=== PATIENT | male | born 1995 | race Two or more races ===

== ENCOUNTER 2017-12-03 12:08 | Inpatient (IN) | payer OTHER ==
[2017-12-03 14:05] VITALS: BMI 28.1
--- NOTE | 2017-12-03 14:48 | HP ---
COWS - Scale Resting Pulse: 0= [place] 80 or Below Sweatin=Flushed/Facial Moisture Restless Observation: 3= Extraneous Movement Pupil Size: 2= Moderately Dilated Bone or Joint Aches: 2= Severe Diffuse Aches Runny Nose/ Eye Tearin= Runny Nose/Eyes GI Upset > 30mins: 3= Vomiting/Diarrhea Tremor Observation: 2= Slight Tremor Visible Yawning Observation: 2= >3x During Session Anxiety or Irritability: 2=Irritable/Anxious Goose Flesh Skin: 0=Smooth Skin COWS Score: 20 Admission ROS S - HPI Chief Complaint: I NEED HELP TO STOP USING OXYCODONE,PERCOCET Allergies/Adverse Reactions: Allergies Allergy/AdvReac Type Severity Reaction Status Date / Time No Known Allergies Allergy Verified 12/03/17 14:45 History of Present Illness: THIS 22 YEARS OLD SEEKING DETOX FROM PERCOCET,OXYCODONE,WITHDRAWAL SYMPTOM,NEVER BEEN IN DETOX BEFORE NICOTINE DEPENDENCE ANXIETY,DEPRESSION,INSOMNIA NO SIGNIFICANT PERIOD OF SOBRIETY Exam Limitations: No Limitations - Ebola screening Have you traveled outside of the country in the last 21 days: No (N) Have you had contact with anyone from an Ebola affected area: No Have you been sick,other than usual withdrawal symptoms: No Do you have a fever: No - Review of Systems Constitutional: Chills, Diaphoresis, Loss of Appetite, Malaise, Night Sweats, Changes in sleep, Weakness EENT: reports: Tearing, Nose Congestion Respiratory: reports: No Symptoms reported Cardiac: reports: No Symptoms Reported GI: reports: Diarrhea, Nausea, Vomiting, Abdominal cramping, Other (S/P ABDOMINAL SURGEY AT AGE OF 32 YEARS OLD) : reports: No Symptoms Reported Musculoskeletal: reports: Back Pain, Joint Pain, Muscle Pain, Joint Stiffness Integumentary: reports: Dryness Neuro: reports: Headache, Tremors Endocrine: reports: No Symptoms Reported Hematology: reports: No Symptoms Reported Psychiatric: reports: Anxious (INSPMNIA), Depressed Patient History - Patient Medical History Hx Anemia: No Hx Asthma: No Hx Chronic Obstructive Pulmonary Disease (COPD): No Hx Cancer: No Hx Cardiac Disorders: No Hx Congestive Heart Failure: No Hx Hypertension: No Hx Hypercholesterolemia: No Hx Pacemaker: No HX Cerebrovascular Accident: No Hx Seizures: Yes (AT AGE OF 32 YEARS OLD,NO MEDICATION) Hx Dementia: No Hx Diabetes: No Hx Gastrointestinal Disorders: No Hx Liver Disease: No Hx Genitourinary Disorders: No Hx Sexually Transmitted Disorders: No Hx Renal Disease (ESRD): No Hx Thyroid Disease: No Hx Human Immunodeficiency Virus (HIV): No (2017 LAST NEGATIVE) Hx Hepatitis C: No Hx Depression: Yes (ANXIETY,INSOMNIA) Hx Suicide Attempt: No Hx Bipolar Disorder: No Hx Schizophrenia: No Other Medical History: NO SUICIDAL,NO HOMICIDAL - Patient Surgical History Past Surgical History: Yes Hx Abdominal Surgery: Yes (SURGERY AT AGE OF 32 YEARS OLD) - PPD History Documented Results: Negative w/o proof Implanted On Prior [facility] Admission?: No PPD to be Administered?: Yes - Smoking Cessation Smoking history: Current every day smoker Have you smoked in the past 12 months: Yes Aproximately how many cigarettes per day: 7 Cigars Per Day: 0 Hx Chewing Tobacco Use: No Initiated information on smoking cessation: Yes 'Breaking Loose' booklet given: 12/03/17 - Substance & Tx. History Hx Alcohol Use: No Hx Substance Use: Yes Substance Use Type: Marijuana, Opiates Hx Substance Use Treatment: No - Substances Abused PERCOCET Route: Oral Frequency: Daily Amount used: 100MG TO 140 MGS Age of first use: 22 Date of Last Use: 12/03/17 OXYCODONE Route: Oral Frequency: Daily Amount used: 100 MGS Age of first use: 22 Date of Last Use: 12/03/17 Marijuana/Hashish Route: Smoking Frequency: Daily Amount used: 20$ Age of first use: 18 Date of Last Use: 12/02/17 Family Disease History - Family Disease History Family History: Denies Admission Physical Exam [facility] - Vital Signs Vital Signs: Vital Signs - 24 hr 12/03/17 13:59 Temperature 98.1 F Pulse Rate 78 Respiratory 20 Rate Blood Pressure 129/72 - Physical General Appearance: Yes: Moderate Distress, Tremorous, Irritable, Sweating, Anxious HEENTM: Yes: TWILA, Nasal Congestion Respiratory: Yes: Lungs Clear, Normal Breath Sounds, No Respiratory Distress Neck: Yes: Within Normal Limits, Supple, Trachea in good position Breast: Yes: Within Normal Limits Cardiology: Yes: Within Normal Limits, Regular Rhythm, Regular Rate, S1, S2 Abdominal: Yes: Within Normal Limits, Normal Bowel Sounds, Flat, Soft, Surgical Scar Genitourinary: Yes: Within Normal Limits Back: Yes: Muscle Spasm Musculoskeletal: Yes: full range of Motion, Back pain, Joint Stiffness, Muscle Pain Extremities: Yes: Within Normal Limits, Normal Range of Motion, Tremors Neurological: Yes: tea room manager II-XII NML intact, Fully Oriented, Alert, Motor Strength 5/5 Integumentary: Yes: Dry Lymphatic: Yes: Within Normal Limits - Diagnostic (1) Opioid dependence with withdrawal Current Visit: Yes Status: Acute (2) Cannabis dependence Current Visit: Yes Status: Acute (3) Nicotine dependence Current Visit: Yes Status: Acute (4) Anxiety and depression Current Visit: Yes Status: Acute (5) Insomnia Current Visit: Yes Status: Acute Cleared for Admission [facility] - Detox or Rehab [facility] Level of Care: Medically Managed Detox Regimen/Protocol: Methadone [facility] Breath Alcohol Content Breath Alcohol Content: 0 Urine Drug Screen - Results Drug Screen Negative: No Urine Drug Screen Results: THC-Marijuana, OXY-Oxycodone
[2017-12-03] MEDS ORDERED: NICOTINE POLACRILEX 2 MG GUM BUC PRN (15:18)
[2017-12-03] MEDS ORDERED: MENTHOL/PHENOL 1 EACH UD MM PRN (15:18)
[2017-12-03] MEDS ORDERED: MAGNESIUM HYDROX 2400MG/30ML ORAL SUSPENSION 30 ML CUP PO PRN (15:18)
[2017-12-03] MEDS ORDERED: IBUPROFEN 400 MG TABLET (FP) PO PRN (15:18)
[2017-12-03] MEDS ORDERED: guaiFENesin/D-METHORPHAN HB 10 ML UNIT-DOSE CUPS PO PRN (15:18)
[2017-12-03] MEDS ORDERED: LOPERAMIDE HCL 2 MG CAPSULE PO PRN (15:18)
[2017-12-03] MEDS ORDERED: ACETAMINOPHEN 325 MG TABLET (FP) PO PRN (15:18)
[2017-12-03] MEDS ORDERED: hydrOXYzine PAMOATE 25 MG CAPSULE (FP) PO PRN (15:18)
[2017-12-03] MEDS ORDERED: P-EPHED 60MG/TRIPROLIDI 2.5MG TABLET PO PRN (15:18)
[2017-12-03] MEDS ORDERED: MAGNESIUM CITRATE 300 ML BOTTLE PO PRN (15:18)
[2017-12-03] MEDS ORDERED: MAG HYDROX/AL HYDROX/SIMETH 30 ML UNIT-DOSE CUP PO PRN (15:18)
[2017-12-03] MEDS ORDERED: METHADONE HCL 10 MG TABLET (FOR DETOX USE ONLY) PO ONE ×2 (15:36→23:00)
[2017-12-03] MEDS: NICOTINE 21 MG/24 HOURS TOPICAL PATCH TD SCH (17:30)
--- NOTE | 2017-12-03 17:46 | CONSULT ---
[facility] Psychiatric Consult - Data Date of interview: 12/03/17 Admission source: [facility] Identifying data: Pt. is a 22 year old single male, without kids, unemployed, and living with his grandmother. This is patient's first admission to [facility]. Pt. admitted to for opiate and marijuana dependence. Substance Abuse History: Following information confirmed with Mr. Valera: Smoking Cessation. Smoking history: Current every day smoker. Have you smoked in the past 12 months: Yes. Aproximately how many cigarettes per day: 7. Cigars Per Day: 0. Hx Chewing Tobacco Use: No. Initiated information on smoking cessation: Yes. 'Breaking Loose' booklet given: 12/03/17. - Substance & Tx. History. Hx Alcohol Use: No. Hx Substance Use: Yes. Substance Use Type : Marijuana, Opiates. Hx Substance Use Treatment: No. - Substances Abused. * * PERCOCET. Route: Oral. Frequency: Daily. Amount used: 100MG TO 140 MGS. Age of first use: 22. Date of Last Use: 12/03/17. OXYCODONE. Route: Oral. Frequency: Daily. Amount used: 100 MGS. Age of first use: 22. Date of Last Use: 12/03/17. Marijuana/Hashish. Route: Smoking. Frequency: Daily. Amount used: 20$. Age of first use: 18. Date of Last Use: 12/02/17 Medical History: Denies. Psychiatric History: Pt. denies h/o psychiatric hospitalizations and suicide attempts. Patient's first encounter with a psychiatrist was in October of 2017 in [place] at the [facility]. States he is prescribed buspar 10mg BID and zoloft 50mg PO daily. Pt. reports a diagnosis of RAMÍREZ. Physical/Sexual Abuse/Trauma History: Denies. Mental Status Exam - Mental Status Exam Alert and Oriented to: Time, Place, Person Cognitive Function: Good Patient Appearance: Well Groomed Mood: Hopeful, Euthymic Affect: Appropriate Patient Behavior: Appropriate, Cooperative Speech Pattern: Clear, Appropriate Voice Loudness: Normal Thought Process: Goal Oriented Thought Disorder: Not Present Hallucinations: Denies Suicidal Ideation: Denies Homicidal Ideation: Denies Insight/Judgement: Poor Sleep: Poorly Appetite: Fair Muscle strength/Tone: Normal Gait/Station: Normal Psychiatric Findings - Problem List ([place] 1, 2,3) (1) Cannabis dependence Current Visit: Yes Status: Acute (2) Insomnia Current Visit: Yes Status: Acute (3) Nicotine dependence Current Visit: Yes Status: Acute (4) Opioid dependence with withdrawal Current Visit: Yes Status: Acute (5) RAMÍREZ (generalized anxiety disorder) Current Visit: Yes Status: Acute - Initial Treatment Plan Initial Treatment Plan: Psychoeducation provided. Detoxification in progress. Zoloft 50mg po daily + Buspar 10mg BID + Benadryl 50mg qhs prn. Benefits and side effects discussed. Verbal consent given. Will continue to monitor.
[2017-12-03] MEDS: THIAMINE HCL 100 MG TABLET (FP) PO SCH (22:32)
[2017-12-03] MEDS: busPIRone HCL 10 MG TABLET (FP) PO SCH (22:32)
[2017-12-03] MEDS: diazePAM 5 MG TABLET PO PRN (22:33)
[2017-12-03] MEDS: cloNIDine HCL 0.1 MG TABLET PO SCH (22:33)
[2017-12-03 23:47] LABS: URINE APPEARANCE CLEAR; URINE BILIRUBIN NEGATIVE (NEGATIVE); URINE BLOOD NEGATIVE (NEGATIVE); URINE COLOR YELLOW; URINE GLUCOSE (UA) NEGATIVE (NEGATIVE); URINE KETONE NEGATIVE (NEGATIVE); URINE LEUK ESTERASE NEGATIVE (NEGATIVE); URINE NITRITE NEGATIVE (NEGATIVE); URINE PROTEIN NEGATIVE (NEGATIVE); URINE UROBILINOGEN NEGATIVE mg/dL (0.2-1.0)
[2017-12-04] MEDS ORDERED: METHADONE HCL 10 MG TABLET (FOR DETOX USE ONLY) PO ONE (10:00)
[2017-12-04 10:14] LABS: HEMATOCRIT 46.6 % (35.4-49); HEMOGLOBIN 15.5 GM/dL (11.7-16.9); MCH 29.3 pg (25.7-33.7); MCHC 33.3 g/dl (32.0-35.9); MEAN CELL VOLUME 87.8 fl (80-96); MEAN PLT VOLUME 9.4 fl (7.5-11.1); PLATELET COUNT 183 K/MM3 (134-434); RBC 5.31 M/mm3 (4.00-5.60); RDW 13.4 % (11.9-15.9)
[2017-12-04] MEDS: CYCLOBENZAPRINE HCL 10 MG TABLET (FP) PO PRN ×2 (10:33→18:29)
[2017-12-04] MEDS: PRENATAL VITAMINS W/ FOLIC ACID TABLET (FP) PO SCH (10:33)
[2017-12-04] MEDS: busPIRone HCL 10 MG TABLET (FP) PO SCH ×2 (10:33→22:34)
[2017-12-04] MEDS: SERTRALINE HCL 50 MG TABLET (FP) PO SCH (10:33)
[2017-12-04] MEDS: cloNIDine HCL 0.1 MG TABLET PO SCH ×2 (10:33→22:35)
[2017-12-04] MEDS: diazePAM 5 MG TABLET PO PRN ×2 (10:34→18:29)
[2017-12-04] MEDS: NICOTINE 21 MG/24 HOURS TOPICAL PATCH TD SCH (10:34)
[2017-12-04 10:37] LABS: CHLORIDE 103 mmol/L (98-107); POTASSIUM 4.8 mmol/L (3.5-5.1); SODIUM 139 mmol/L (136-145)
[2017-12-04 10:42] LABS: ALBUMIN 4.6 g/dl (3.4-5.0); ALK PHOS 110 U/L (45-117); ANION GAP 5 (8-16); BILIRUBIN,TOTAL 0.8 mg/dL (0.2-1.0); BLOOD UREA NITROGEN 10 mg/dL (7-18); CALCIUM 8.8 mg/dL (8.5-10.1); CO2 31 mmol/L (21-32); CREATININE 0.9 mg/dL (0.7-1.3); GLUCOSE,RANDOM 82 mg/dL (74-106); SGOT/AST 29 U/L (15-37); SGPT/ALT 47 U/L (12-78); TOT PROT 7.7 g/dl (6.4-8.2)
--- NOTE | 2017-12-04 11:05 | EKG ---
Test Reason : Blood Pressure : / mmHG Vent. Rate : 074 BPM Atrial Rate : 074 BPM P-R Int : 126 ms QRS Dur : 084 ms QT Int : 370 ms P-R-T Axes : 028 073 047 degrees QTc Int : 410 ms NORMAL SINUS RHYTHM NORMAL ECG NO PREVIOUS ECGS AVAILABLE Confirmed by PUJA BELL MD ([id number]) on 12/04/2017 11:05:13 AM Referred By: Confirmed By:PUJA BELL MD
[2017-12-04] MEDS: ONDANSETRON *ODT* 4 MG TABLET SL PRN (11:06)
--- NOTE | 2017-12-04 11:24 | PN ---
BHS COWS - Scale Resting Pulse: 1= [place] 81-100 Sweatin= Chills/Flushing Restless Observation: 3= Extraneous Movement Pupil Size: 1= Pupils >than Normal Bone or Joint Aches: 2= Severe Diffuse Aches Runny Nose/ Eye Tearin= Runny Nose/Eyes GI Upset > 30mins: 2= Nausea/Diarrhea Tremor Observation of Outstretched Hands: 2= Slight Tremor Visible Yawning Observation: 1= 1-2x During Session Anxiety or Irritability: 2=Irritable/Anxious Goose Flesh Skin: 0=Smooth Skin COWS Score: 17 S Progress Note (SOAP) Subjective: ALERT,IRRITABLE,ANXIOUS,TREMOR,PAIN IN THE BODY AND JOINT,INTERRUPTED SLEEP, Objective: 12/04/17 11:22 Vital Signs Temperature 97.9 F 12/04/17 10:00 Pulse Rate 85 12/04/17 10:00 Respiratory Rate 16 12/04/17 10:00 Blood Pressure 122/71 12/04/17 10:00 O2 Sat by Pulse Oximetry (%) EKG Laboratory Last Values WBC 8.0 K/mm3 (4.0-10.0) 12/04/17 07:00 RBC 5.31 M/mm3 (4.00-5.60) 12/04/17 07:00 Hgb 15.5 GM/dL (11.7-16.9) 12/04/17 07:00 Hct 46.6 % (35.4-49) 12/04/17 07:00 MCV 87.8 fl (80-96) 12/04/17 07:00 MCH 29.3 pg (25.7-33.7) 12/04/17 07:00 MCHC 33.3 g/dl (32.0-35.9) 12/04/17 07:00 RDW 13.4 % (11.9-15.9) 12/04/17 07:00 Plt Count 183 K/MM3 (134-434) 12/04/17 07:00 MPV 9.4 fl (7.5-11.1) 12/04/17 07:00 Sodium 139 mmol/L (136-145) 12/04/17 07:00 Potassium 4.8 mmol/L (3.5-5.1) 12/04/17 07:00 Chloride 103 mmol/L (98-107) 12/04/17 07:00 Carbon Dioxide 31 mmol/L (21-32) 12/04/17 07:00 Anion Gap 5 (8-16) L 12/04/17 07:00 BUN 10 mg/dL (7-18) 12/04/17 07:00 Creatinine 0.9 mg/dL (0.7-1.3) 12/04/17 07:00 Creat Clearance w eGFR > 60 (>60) 12/04/17 07:00 Random Glucose 82 mg/dL (74-106) 12/04/17 07:00 Calcium 8.8 mg/dL (8.5-10.1) 12/04/17 07:00 Total Bilirubin 0.8 mg/dL (0.2-1.0) 12/04/17 07:00 AST 29 U/L (15-37) 12/04/17 07:00 ALT 47 U/L (12-78) 12/04/17 07:00 Alkaline Phosphatase 110 U/L (45-117) 12/04/17 07:00 Total Protein 7.7 g/dl (6.4-8.2) 12/04/17 07:00 Albumin 4.6 g/dl (3.4-5.0) 12/04/17 07:00 Urine Color Yellow 12/03/17 23:25 Urine Appearance Clear 12/03/17 23:25 Urine pH 5.0 (5.0-8.0) 12/03/17 23:25 Ur Specific [place] 1.025 (1.001-1.035) 12/03/17 23:25 Urine Protein Negative (NEGATIVE) 12/03/17 23:25 Urine Glucose (UA) Negative (NEGATIVE) 12/03/17 23:25 Urine Ketones Negative (NEGATIVE) 12/03/17 23:25 Urine Blood Negative (NEGATIVE) 12/03/17 23:25 Urine Nitrite Negative (NEGATIVE) 12/03/17 23:25 Urine Bilirubin Negative (NEGATIVE) 12/03/17 23:25 Urine Urobilinogen Negative mg/dL (0.2-1.0) 12/03/17 23:25 Ur Leukocyte Esterase Negative (NEGATIVE) 12/03/17 23:25 NSR,NORMAL ECG 12/04/17 11:24 LABS PENDING Assessment: 12/04/17 11:24 WITHDRAWAL SYMPTOM Plan: CONTINUE DETOX
--- NOTE | 2017-12-04 11:26 | PN ---
BHS Progress Note Note: PATIENT VOMITED ONCE,LALA HUDSON ORDERED,CLOSE MONITORING
[2017-12-04] MEDS: THIAMINE HCL 100 MG TABLET (FP) PO SCH (22:34)
[2017-12-05] MEDS: CYCLOBENZAPRINE HCL 10 MG TABLET (FP) PO PRN ×3 (05:17→22:36)
[2017-12-05] MEDS: diazePAM 5 MG TABLET PO PRN ×2 (05:17→10:28)
[2017-12-05] MEDS ORDERED: METHADONE HCL 5 MG TABLET (FOR DETOX USE ONLY) PO ONE (10:00)
[2017-12-05] MEDS: PRENATAL VITAMINS W/ FOLIC ACID TABLET (FP) PO SCH (10:28)
[2017-12-05] MEDS: cloNIDine HCL 0.1 MG TABLET PO SCH ×2 (10:28→22:33)
[2017-12-05] MEDS: busPIRone HCL 10 MG TABLET (FP) PO SCH ×2 (10:29→22:33)
[2017-12-05] MEDS: ONDANSETRON *ODT* 4 MG TABLET SL PRN (10:29)
[2017-12-05] MEDS: NICOTINE 21 MG/24 HOURS TOPICAL PATCH TD SCH (10:29)
[2017-12-05] MEDS: SERTRALINE HCL 50 MG TABLET (FP) PO SCH (10:29)
--- NOTE | 2017-12-05 12:11 | PN ---
BHS COWS - Scale Resting Pulse: 1= [place] 81-100 Sweatin= Chills/Flushing Restless Observation: 3= Extraneous Movement Pupil Size: 1= Pupils >than Normal Bone or Joint Aches: 2= Severe Diffuse Aches Runny Nose/ Eye Tearin= Runny Nose/Eyes GI Upset > 30mins: 2= Nausea/Diarrhea Tremor Observation of Outstretched Hands: 2= Slight Tremor Visible Yawning Observation: 1= 1-2x During Session Anxiety or Irritability: 2=Irritable/Anxious Goose Flesh Skin: 0=Smooth Skin COWS Score: 17 BHS Progress Note (SOAP) Subjective: ALERT,IRRITABLE,ANXIOUS,INTERRUPTED SLEEP,PAIN IN THE BODY AND BACK Objective: 12/05/17 12:10 Vital Signs Temperature 98.2 F 12/05/17 09:57 Pulse Rate 90 12/05/17 09:57 Respiratory Rate 18 12/05/17 09:57 Blood Pressure 109/80 12/05/17 09:57 O2 Sat by Pulse Oximetry (%) Laboratory Last Values WBC 8.0 K/mm3 (4.0-10.0) 12/04/17 07:00 RBC 5.31 M/mm3 (4.00-5.60) 12/04/17 07:00 Hgb 15.5 GM/dL (11.7-16.9) 12/04/17 07:00 Hct 46.6 % (35.4-49) 12/04/17 07:00 MCV 87.8 fl (80-96) 12/04/17 07:00 MCH 29.3 pg (25.7-33.7) 12/04/17 07:00 MCHC 33.3 g/dl (32.0-35.9) 12/04/17 07:00 RDW 13.4 % (11.9-15.9) 12/04/17 07:00 Plt Count 183 K/MM3 (134-434) 12/04/17 07:00 MPV 9.4 fl (7.5-11.1) 12/04/17 07:00 Sodium 139 mmol/L (136-145) 12/04/17 07:00 Potassium 4.8 mmol/L (3.5-5.1) 12/04/17 07:00 Chloride 103 mmol/L (98-107) 12/04/17 07:00 Carbon Dioxide 31 mmol/L (21-32) 12/04/17 07:00 Anion Gap 5 (8-16) L 12/04/17 07:00 BUN 10 mg/dL (7-18) 12/04/17 07:00 Creatinine 0.9 mg/dL (0.7-1.3) 12/04/17 07:00 Creat Clearance w eGFR > 60 (>60) 12/04/17 07:00 Random Glucose 82 mg/dL (74-106) 12/04/17 07:00 Calcium 8.8 mg/dL (8.5-10.1) 12/04/17 07:00 Total Bilirubin 0.8 mg/dL (0.2-1.0) 12/04/17 07:00 AST 29 U/L (15-37) 12/04/17 07:00 ALT 47 U/L (12-78) 12/04/17 07:00 Alkaline Phosphatase 110 U/L (45-117) 12/04/17 07:00 Total Protein 7.7 g/dl (6.4-8.2) 12/04/17 07:00 Albumin 4.6 g/dl (3.4-5.0) 12/04/17 07:00 Urine Color Yellow 12/03/17 23:25 Urine Appearance Clear 12/03/17 23:25 Urine pH 5.0 (5.0-8.0) 12/03/17 23:25 Ur Specific [place] 1.025 (1.001-1.035) 12/03/17 23:25 Urine Protein Negative (NEGATIVE) 12/03/17 23:25 Urine Glucose (UA) Negative (NEGATIVE) 12/03/17 23:25 Urine Ketones Negative (NEGATIVE) 12/03/17 23:25 Urine Blood Negative (NEGATIVE) 12/03/17 23:25 Urine Nitrite Negative (NEGATIVE) 12/03/17 23:25 Urine Bilirubin Negative (NEGATIVE) 12/03/17 23:25 Urine Urobilinogen Negative mg/dL (0.2-1.0) 12/03/17 23:25 Ur Leukocyte Esterase Negative (NEGATIVE) 12/03/17 23:25 RPR Titer Nonreactive (NONREACTIVE) 12/04/17 07:00 Assessment: 12/05/17 12:11 WITHDRAWAL SYMPTOM Plan: CONTINUE DETOX
[2017-12-05] MEDS: THIAMINE HCL 100 MG TABLET (FP) PO SCH (22:33)
[2017-12-05] MEDS: diphenhydrAMINE HCL 25 MG CAPSULE (FP) PO PRN (22:36)
[2017-12-06] MEDS ORDERED: METHADONE HCL 10 MG TABLET (FOR DETOX USE ONLY) PO ONE (10:00)
[2017-12-06] MEDS ORDERED: METHADONE HCL 5 MG TABLET (FOR DETOX USE ONLY) PO ONE (10:00)
--- NOTE | 2017-12-06 10:23 | PN ---
S Progress Note (SOAP) Subjective: ALERT,IRRITABLE,ANXIOUS,INTERRUPTED SLEEP Objective: 12/06/17 10:22 Vital Signs Temperature 96.3 F L 12/06/17 10:04 Pulse Rate 83 12/06/17 10:04 Respiratory Rate 18 12/06/17 10:04 Blood Pressure 118/72 12/06/17 10:04 O2 Sat by Pulse Oximetry (%) Assessment: 12/06/17 10:23 WITHDRAWAL SYMPTOM Plan: CONTINUE DETOX,DISCHARGE IN AM
[2017-12-06] MEDS: busPIRone HCL 10 MG TABLET (FP) PO SCH ×2 (10:31→22:20)
[2017-12-06] MEDS: SERTRALINE HCL 50 MG TABLET (FP) PO SCH (10:31)
[2017-12-06] MEDS: PRENATAL VITAMINS W/ FOLIC ACID TABLET (FP) PO SCH (10:31)
[2017-12-06] MEDS: cloNIDine HCL 0.1 MG TABLET PO SCH ×2 (10:31→22:21)
[2017-12-06] MEDS: NICOTINE 21 MG/24 HOURS TOPICAL PATCH TD SCH (12:26)
[2017-12-06] MEDS: THIAMINE HCL 100 MG TABLET (FP) PO SCH (22:20)
[2017-12-06] MEDS: CYCLOBENZAPRINE HCL 10 MG TABLET (FP) PO PRN (22:21)
[2017-12-06] MEDS: diphenhydrAMINE HCL 25 MG CAPSULE (FP) PO PRN (22:22)
[2017-12-07] MEDS: CYCLOBENZAPRINE HCL 10 MG TABLET (FP) PO PRN (05:46)
[2017-12-07] MEDS ORDERED: METHADONE HCL 5 MG TABLET (FOR DETOX USE ONLY) PO ONE (06:00)
[2017-12-07 06:20] VITALS: BP 116/69; PULSE 70; TEMP 97.2
[2017-12-07] MEDS ORDERED: METHADONE HCL 10 MG TABLET (FOR DETOX USE ONLY) PO ONE (10:00)
--- NOTE | 2017-12-07 10:32 | DS ---
[facility] Detox Discharge Summary Admission Date: 12/03/17 Discharge Date: 12/07/17 - History Present History: Opioid Dependence - Physical Exam Results Vital Signs: Vital Signs Temperature 97.2 F L 12/07/17 06:20 Pulse Rate 70 12/07/17 06:20 Respiratory Rate 18 12/07/17 06:20 Blood Pressure 116/69 12/07/17 06:20 O2 Sat by Pulse Oximetry (%) Pertinent Admission Physical Exam Findings: withdrawal sx Vital Signs Temperature 97.2 F L 12/07/17 06:20 Pulse Rate 70 12/07/17 06:20 Respiratory Rate 18 12/07/17 06:20 Blood Pressure 116/69 12/07/17 06:20 O2 Sat by Pulse Oximetry (%) Laboratory Last Values WBC 8.0 K/mm3 (4.0-10.0) 12/04/17 07:00 RBC 5.31 M/mm3 (4.00-5.60) 12/04/17 07:00 Hgb 15.5 GM/dL (11.7-16.9) 12/04/17 07:00 Hct 46.6 % (35.4-49) 12/04/17 07:00 MCV 87.8 fl (80-96) 12/04/17 07:00 MCH 29.3 pg (25.7-33.7) 12/04/17 07:00 MCHC 33.3 g/dl (32.0-35.9) 12/04/17 07:00 RDW 13.4 % (11.9-15.9) 12/04/17 07:00 Plt Count 183 K/MM3 (134-434) 12/04/17 07:00 MPV 9.4 fl (7.5-11.1) 12/04/17 07:00 Sodium 139 mmol/L (136-145) 12/04/17 07:00 Potassium 4.8 mmol/L (3.5-5.1) 12/04/17 07:00 Chloride 103 mmol/L (98-107) 12/04/17 07:00 Carbon Dioxide 31 mmol/L (21-32) 12/04/17 07:00 Anion Gap 5 (8-16) L 12/04/17 07:00 BUN 10 mg/dL (7-18) 12/04/17 07:00 Creatinine 0.9 mg/dL (0.7-1.3) 12/04/17 07:00 Creat Clearance w eGFR > 60 (>60) 12/04/17 07:00 Random Glucose 82 mg/dL (74-106) 12/04/17 07:00 Calcium 8.8 mg/dL (8.5-10.1) 12/04/17 07:00 Total Bilirubin 0.8 mg/dL (0.2-1.0) 12/04/17 07:00 AST 29 U/L (15-37) 12/04/17 07:00 ALT 47 U/L (12-78) 12/04/17 07:00 Alkaline Phosphatase 110 U/L (45-117) 12/04/17 07:00 Total Protein 7.7 g/dl (6.4-8.2) 12/04/17 07:00 Albumin 4.6 g/dl (3.4-5.0) 12/04/17 07:00 Urine Color Yellow 12/03/17 23:25 Urine Appearance Clear 12/03/17 23:25 Urine pH 5.0 (5.0-8.0) 12/03/17 23:25 Ur Specific [place] 1.025 (1.001-1.035) 12/03/17 23:25 Urine Protein Negative (NEGATIVE) 12/03/17 23:25 Urine Glucose (UA) Negative (NEGATIVE) 12/03/17 23:25 Urine Ketones Negative (NEGATIVE) 12/03/17 23:25 Urine Blood Negative (NEGATIVE) 12/03/17 23:25 Urine Nitrite Negative (NEGATIVE) 12/03/17 23:25 Urine Bilirubin Negative (NEGATIVE) 12/03/17 23:25 Urine Urobilinogen Negative mg/dL (0.2-1.0) 12/03/17 23:25 Ur Leukocyte Esterase Negative (NEGATIVE) 12/03/17 23:25 RPR Titer Nonreactive (NONREACTIVE) 12/04/17 07:00 lab noted - Treatment Hospital Course: Detox Protocol Followed, Detoxed Safely, Responded well, Discharged Condition Good, Rehab Referral Accepted Patient has Accepted a Rehab Referral to: as per counselor arranged - Medication Discharge Medications: Ambulatory Orders Buspirone HCl [Buspar -] 10 mg PO BID 12/03/17 Sertraline HCl [Zoloft -] 50 mg PO HS 12/03/17 - Diagnosis (1) Opioid dependence with withdrawal Status: Acute (2) RAMÍREZ (generalized anxiety disorder) Status: Suspected - AMA Did Patient Leave Against Medical Advice: No
[2017-12-08] MEDS ORDERED: METHADONE HCL 5 MG TABLET (FOR DETOX USE ONLY) PO ONE (06:00)
== END 2017-12-07 08:57 | disposition home or self-care (01) | DRG 773 ==
LOC: YASAS 12:08 → Y6N 15:16
PROVIDERS: ADMIT Internal Medicine; ATTEND Internal Medicine
PROC: HZ2ZZZZ Detoxification Services for Substance Abuse Treatment (ICD-10-PCS; principal; 2017-12-03)
DX: F11.23 Opioid dependence with withdrawal (principal); F12.20 Cannabis dependence, uncomplicated; F17.210 Nicotine dependence, cigarettes, uncomplicated; F41.8 Other specified anxiety disorders; F41.1 Generalized anxiety disorder; G47.00 Insomnia, unspecified; Z86.69 Personal history of other diseases of the nervous system and sense organs
CPT/HCPCS: 36415; 80053; 81003; 85027; 86593; 93005; 93010; J0735

== ENCOUNTER 2018-01-14 10:45 | Inpatient (IN) | payer OTHER ==
[2018-01-14 12:35] VITALS: BMI 27.2
--- NOTE | 2018-01-14 15:38 | HP ---
COWS - Scale Resting Pulse: 1= [place] 81-100 Sweatin= Chills/Flushing Restless Observation: 3= Extraneous Movement Pupil Size: 0= Normal to Room Light Bone or Joint Aches: 2= Severe Diffuse Aches Runny Nose/ Eye Tearin= Runny Nose/Eyes GI Upset > 30mins: 2= Nausea/Diarrhea Tremor Observation: 2= Slight Tremor Visible Yawning Observation: 2= >3x During Session Anxiety or Irritability: 1=Feels Anxious/Irritable Goose Flesh Skin: 0=Smooth Skin COWS Score: 16 Admission [facility] - HPI Chief Complaint: withdrawal sx Allergies/Adverse Reactions: Allergies Allergy/AdvReac Type Severity Reaction Status Date / Time No Known Allergies Allergy Verified 01/14/18 15:34 History of Present Illness: 22 years old male with long history of opiate dependence has anxiety and depression is admitted to detox Exam Limitations: No Limitations - Ebola screening Have you traveled outside of the country in the last 21 days: No Have you had contact with anyone from an Ebola affected area: No Have you been sick,other than usual withdrawal symptoms: No Do you have a fever: No - Review of Systems Constitutional: Changes in sleep EENT: reports: No Symptoms Reported Respiratory: reports: Productive cough (greenish) Cardiac: reports: No Symptoms Reported GI: reports: Diarrhea, Nausea, Poor Fluid Intake, Abdominal cramping : reports: No Symptoms Reported Musculoskeletal: reports: Back Pain, Joint Pain, Muscle Pain, Neck Pain Integumentary: reports: No Symptoms Reported Neuro: reports: Tremors Endocrine: reports: No Symptoms Reported Hematology: reports: No Symptoms Reported Psychiatric: reports: Judgement Intact, Orientated x3, Anxious, Depressed Other Systems: Reviewed and Negative Patient History - Patient Medical History Hx Anemia: No Hx Asthma: No Hx Chronic Obstructive Pulmonary Disease (COPD): No Hx Cancer: No Hx Cardiac Disorders: No Hx Congestive Heart Failure: No Hx Hypertension: No Hx Hypercholesterolemia: No Hx Pacemaker: No HX Cerebrovascular Accident: No Hx Seizures: No Hx Dementia: No Hx Diabetes: No Hx Gastrointestinal Disorders: No Hx Liver Disease: No Hx Genitourinary Disorders: No Hx Sexually Transmitted Disorders: No Hx Renal Disease (ESRD): No Hx Thyroid Disease: No Hx Human Immunodeficiency Virus (HIV): No (2016 LAST NEGATIVE) Hx Hepatitis C: No Hx Depression: Yes (Tx with Zoloft 10/2017) Hx Suicide Attempt: No Hx Bipolar Disorder: No Hx Schizophrenia: No - Patient Surgical History Past Surgical History: Yes Hx Abdominal Surgery: Yes (SURGERY AT AGE OF 32 YEARS OLD) Hx Appendectomy: No Hx Cholecystectomy: Yes (Congenital Gall Bladder Problem) Hx Genitourinary Surgery: No Hx Orthopedic Surgery: No Anesthesia Reaction: No - PPD History Previous Implant?: Yes Documented Results: Negative w/proof Implanted On Prior [facility] Admission?: Yes Date: 12/05/17 PPD to be Administered?: No - Smoking Cessation Smoking history: Current every day smoker Have you smoked in the past 12 months: Yes Aproximately how many cigarettes per day: 7 Cigars Per Day: 0 Hx Chewing Tobacco Use: No Initiated information on smoking cessation: Yes 'Breaking Loose' booklet given: 01/14/18 - Substance & Tx. History Hx Alcohol Use: No Hx Substance Use: Yes Substance Use Type: Marijuana, Opiates Hx Substance Use Treatment: Yes (12/2017 [facility] Family Disease History - Family Disease History Family Disease History: Diabetes: Father (), Brother, Heart Disease: Father, Other: Father Admission Physical Exam S - Vital Signs Vital Signs: Vital Signs - 24 hr 01/14/18 12:29 Temperature 98.6 F Pulse Rate 95 H Respiratory 20 Rate Blood Pressure 145/77 - Physical General Appearance: Yes: Nourished, Appropriately Dressed, Mild Distress, Tremorous, Irritable, Sweating, Anxious HEENTM: Yes: Hearing grossly Normal, Normal ENT Inspection, Normocephalic, Normal Voice Respiratory: Yes: Chest Non-Tender, No Respiratory Distress, No Accessory Muscle Use, Rhonchi, Hyperresonant Neck: Yes: Supple, Trachea in good position Breast: Yes: Breasts Symetrical Cardiology: Yes: Regular Rhythm, S1, S2, Tachycardia Abdominal: Yes: Non Tender, Soft, Increased Bowel Sounds Genitourinary: Yes: Within Normal Limits Back: Yes: Normal Inspection Musculoskeletal: Yes: full range of Motion, Gait Steady, Back pain, Muscle Pain Extremities: Yes: Normal Inspection, Normal Range of Motion, Non-Tender, Tremors Neurological: Yes: Fully Oriented, Alert, Motor Strength 5/5, Normal Response, Depressed Affect Integumentary: Yes: Warm Lymphatic: Yes: Within Normal Limits - Diagnostic (1) Anxiety and depression Current Visit: Yes Status: Suspected (2) Opioid dependence with withdrawal Current Visit: Yes Status: Acute Cleared for Admission [facility] - Detox or Rehab [facility] Level of Care: Medically Managed Detox Regimen/Protocol: Methadone [facility] Breath Alcohol Content Breath Alcohol Content: 0 Urine Drug Screen - Control Is Test Valid: Yes - Results Drug Screen Negative: No Urine Drug Screen Results: THC-Marijuana, OPI-Opiates, BAR-Barbiturates, OXY- Oxycodone
[2018-01-14] MEDS ORDERED: LOPERAMIDE HCL 2 MG CAPSULE PO PRN (15:52)
[2018-01-14] MEDS ORDERED: MAG HYDROX/AL HYDROX/SIMETH 30 ML UNIT-DOSE CUP PO PRN (15:52)
[2018-01-14] MEDS ORDERED: MAGNESIUM HYDROX 2400MG/30ML ORAL SUSPENSION 30 ML CUP PO PRN (15:52)
[2018-01-14] MEDS ORDERED: NICOTINE POLACRILEX 2 MG GUM BUC PRN (15:52)
[2018-01-14] MEDS ORDERED: MENTHOL/PHENOL 1 EACH UD MM PRN (15:52)
[2018-01-14] MEDS ORDERED: P-EPHED 60MG/TRIPROLIDI 2.5MG TABLET PO PRN (15:52)
[2018-01-14] MEDS ORDERED: MAGNESIUM CITRATE 300 ML BOTTLE PO PRN (15:52)
[2018-01-14] MEDS ORDERED: METHADONE HCL 10 MG TABLET (FOR DETOX USE ONLY) PO ONE ×2 (17:00→23:00)
[2018-01-14] MEDS: diazePAM 5 MG TABLET PO PRN ×2 (17:56→22:25)
[2018-01-14] MEDS: IBUPROFEN 400 MG TABLET (FP) PO PRN (17:59)
[2018-01-14] MEDS: THIAMINE HCL 100 MG TABLET (FP) PO SCH (22:24)
[2018-01-14] MEDS: CYCLOBENZAPRINE HCL 5 MG TABLET PO PRN (22:25)
[2018-01-14 23:11] LABS: URINE APPEARANCE CLEAR; URINE BILIRUBIN NEGATIVE (NEGATIVE); URINE BLOOD NEGATIVE (NEGATIVE); URINE COLOR AMBER; URINE GLUCOSE (UA) NEGATIVE (NEGATIVE); URINE KETONE NEGATIVE (NEGATIVE); URINE LEUK ESTERASE NEGATIVE (NEGATIVE); URINE NITRITE NEGATIVE (NEGATIVE)
[2018-01-14 23:20] LABS: URINE PROTEIN 2+ (NEGATIVE)
[2018-01-14 23:23] LABS: EPI CELLS RARE /HPF (FEW); URINE MUCUS MANY
[2018-01-15] MEDS: ONDANSETRON *ODT* 4 MG TABLET SL PRN (05:49)
[2018-01-15] MEDS: diazePAM 5 MG TABLET PO PRN ×3 (05:49→22:48)
[2018-01-15] MEDS: guaiFENesin/D-METHORPHAN HB 10 ML UNIT-DOSE CUPS PO PRN (05:49)
[2018-01-15] MEDS: IBUPROFEN 400 MG TABLET (FP) PO PRN (06:13)
[2018-01-15] MEDS: CYCLOBENZAPRINE HCL 5 MG TABLET PO PRN ×2 (06:13→10:25)
--- NOTE | 2018-01-15 09:55 | CONSULT ---
[facility] Psychiatric Consult - Data Date of interview: 01/15/18 Admission source: [facility] Identifying data: Pt. 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 This is one of multiple admissions for patient. Pt. admitted to 3 detox for opioid dependence. Substance Abuse History: Oxycodone- First used: In 2016 Amount used: 5-10 tablets daily. Medical History: Denies. Psychiatric History: Patient's first encounter with a psychiatrist was in October 2017 after c/o anxiety and depression. Pt. see's an outpatient psychiatrist at [facility] in [facility] and is prescribed Buspar 10mg BID and Zoloft 50mg PO daily. Pt. is compliant with medication regime. Pt. denies h/o psychiatric hospitalizations and suicide attempt. Physical/Sexual Abuse/Trauma History: Denies. Mental Status Exam - Mental Status Exam Alert and Oriented to: Time, Place, Person Cognitive Function: Good Patient Appearance: Well Groomed Mood: Hopeful Affect: Appropriate Patient Behavior: Appropriate, Cooperative Speech Pattern: Clear, Appropriate Voice Loudness: Normal Thought Process: Goal Oriented Hallucinations: Denies Suicidal Ideation: Denies Homicidal Ideation: Denies Insight/Judgement: Poor Sleep: Fair Appetite: Fair Muscle strength/Tone: Normal Gait/Station: Normal Psychiatric Findings - Problem List ([place] 1, 2,3) (1) Substance induced mood disorder Current Visit: Yes Status: Acute (2) Opioid dependence with withdrawal Current Visit: Yes Status: Acute (3) Insomnia Current Visit: Yes Status: Acute - Initial Treatment Plan Initial Treatment Plan: Psychoeducation provided. Detoxification in progress. Buspar 10mg BID + Zoloft 50mg PO + Benadryl 50mg qhs prn for insomnia. Benefits and side effects discussed. Verbal consent given.
[2018-01-15] MEDS ORDERED: METHADONE HCL 10 MG TABLET (FOR DETOX USE ONLY) PO ONE (10:00)
[2018-01-15 10:03] LABS: HEMATOCRIT 43.7 % (35.4-49); HEMOGLOBIN 14.5 GM/dL (11.7-16.9); MCH 29.9 pg (25.7-33.7); MCHC 33.2 g/dl (32.0-35.9); MEAN CELL VOLUME 90.1 fl (80-96); MEAN PLT VOLUME 9.7 fl (7.5-11.1); PLATELET COUNT 178 K/MM3 (134-434); RBC 4.85 M/mm3 (4.00-5.60); RDW 13.8 % (11.9-15.9); WHITE BLOOD COUNT 18.5 K/mm3 (4.0-10.0)
[2018-01-15] MEDS: PRENATAL VITAMINS W/ FOLIC ACID TABLET (FP) PO SCH (10:21)
[2018-01-15] MEDS: busPIRone HCL 10 MG TABLET (FP) PO SCH ×2 (10:25→22:47)
[2018-01-15] MEDS: NICOTINE 14 MG/24 HOURS TOPICAL PATCH TD SCH (10:26)
[2018-01-15 10:29] LABS: CHLORIDE 100 mmol/L (98-107); POTASSIUM 4.2 mmol/L (3.5-5.1); SODIUM 136 mmol/L (136-145)
[2018-01-15 10:47] LABS: ALBUMIN 4.4 g/dl (3.4-5.0); ALK PHOS 118 U/L (45-117); ANION GAP 11 (8-16); BILIRUBIN,TOTAL 0.7 mg/dL (0.2-1.0); BLOOD UREA NITROGEN 8 mg/dL (7-18); CALCIUM 8.8 mg/dL (8.5-10.1); CO2 25 mmol/L (21-32); CREATININE 0.9 mg/dL (0.7-1.3); GLUCOSE,RANDOM 84 mg/dL (74-106); SGOT/AST 151 U/L (15-37); SGPT/ALT 88 U/L (12-78); TOT PROT 8.1 g/dl (6.4-8.2)
[2018-01-15] MEDS: SERTRALINE HCL 50 MG TABLET (FP) PO SCH (12:31)
--- NOTE | 2018-01-15 16:38 | PN ---
BHS COWS - Scale Resting Pulse: 1= [place] 81-100 Sweatin= Chills/Flushing Restless Observation: 1= Difficult to Sit Still Pupil Size: 0= Normal to Room Light Bone or Joint Aches: 2= Severe Diffuse Aches Runny Nose/ Eye Tearin= Nasal Congestion GI Upset > 30mins: 0= None Tremor Observation of Outstretched Hands: 2= Slight Tremor Visible Yawning Observation: 1= 1-2x During Session Anxiety or Irritability: 2=Irritable/Anxious Goose Flesh Skin: 3=Piloerection COWS Score: 14 BHS Progress Note (SOAP) Subjective: Tremors, Anxious, Body Aches, Interrupted Sleep. Objective: PATIENT A & O X 3, OBSERVED AMBULATING ON UNIT. NO ACUTE DISTRESS. 01/15/18 16:39 Vital Signs Temperature 97.8 F 01/15/18 14:42 Pulse Rate 90 01/15/18 14:42 Respiratory Rate 18 01/15/18 14:42 Blood Pressure 119/78 01/15/18 14:42 O2 Sat by Pulse Oximetry (%) Laboratory Tests 01/14/18 01/14/18 01/15/18 06:00 23:00 06:00 WBC 18.5 H D RBC 4.85 Hgb 14.5 Hct 43.7 MCV 90.1 MCH 29.9 MCHC 33.2 RDW 13.8 Plt Count 178 MPV 9.7 Sodium Potassium Chloride Carbon Dioxide Anion Gap BUN Creatinine Creat Clearance w eGFR Random Glucose Calcium Total Bilirubin AST ALT Alkaline Phosphatase Total Protein Albumin Urine Color Tia Urine Appearance Clear Urine pH 5.0 Ur Specific [place] 1.032 Urine Protein 2+ H Urine Glucose (UA) Negative Urine Ketones Negative Urine Blood Negative Urine Nitrite Negative Urine Bilirubin Negative Urine Urobilinogen 2.0 Ur Leukocyte Esterase Negative Urine WBC (Auto) 2 Urine RBC (Auto) 4 Ur Epithelial Cells Rare Urine Mucus Many RPR Titer HIV 1&2 Antibody Screen Negative HIV P24 Antigen Negative 01/15/18 01/15/18 06:00 06:00 WBC RBC Hgb Hct MCV MCH MCHC RDW Plt Count MPV Sodium 136 Potassium 4.2 Chloride 100 Carbon Dioxide 25 Anion Gap 11 BUN 8 Creatinine 0.9 Creat Clearance w eGFR > 60 Random Glucose 84 Calcium 8.8 Total Bilirubin 0.7 AST 151 H D ALT 88 H D Alkaline Phosphatase 118 H Total Protein 8.1 Albumin 4.4 Urine Color Urine Appearance Urine pH Ur Specific [place] Urine Protein Urine Glucose (UA) Urine Ketones Urine Blood Urine Nitrite Urine Bilirubin Urine Urobilinogen Ur Leukocyte Esterase Urine WBC (Auto) Urine RBC (Auto) Ur Epithelial Cells Urine Mucus RPR Titer Nonreactive HIV 1&2 Antibody Screen HIV P24 Antigen LABS NOTED. HCV AB RESULT PENDING. 01/15/18 16:42 Assessment: 01/15/18 16:40 WITHDRAWAL SYMPTOMS. LEUKOCYTOSIS. 01/15/18 16:42 Plan: CONTINUE DETOX. REPEAT CBC TOMORROW AM FOR ELEVATED WBC COUNT. INCREASE DAILY PO FLUID INTAKE.
--- NOTE | 2018-01-15 16:44 | EKG ---
Test Reason : Blood Pressure : / mmHG Vent. Rate : 092 BPM Atrial Rate : 092 BPM P-R Int : 124 ms QRS Dur : 084 ms QT Int : 332 ms P-R-T Axes : 025 073 038 degrees QTc Int : 410 ms NORMAL SINUS RHYTHM NORMAL ECG WHEN COMPARED WITH ECG OF 03-DEC-2017 17:22, NO SIGNIFICANT CHANGE WAS FOUND Confirmed by PUJA BELL MD ([id number]) on 01/15/2018 4:44:02 PM Referred By: Confirmed By:PUJA BELL MD
[2018-01-15] MEDS: ACETAMINOPHEN 325 MG TABLET (FP) PO PRN (22:47)
[2018-01-15] MEDS: THIAMINE HCL 100 MG TABLET (FP) PO SCH (22:47)
[2018-01-16] MEDS: IBUPROFEN 400 MG TABLET (FP) PO PRN ×2 (03:52→19:45)
[2018-01-16] MEDS: diazePAM 5 MG TABLET PO PRN ×2 (03:53→22:52)
[2018-01-16] MEDS ORDERED: METHADONE HCL 5 MG TABLET (FOR DETOX USE ONLY) PO ONE (10:00)
[2018-01-16 10:13] LABS: BASO % 0.5 % (0-2.0); EOS % 2.1 % (0-4.5); HEMOGLOBIN 14.1 GM/dL (11.7-16.9); LYMPH % 15.5 % (8-40); MCH 30.4 pg (25.7-33.7); MCHC 34.3 g/dl (32.0-35.9); MEAN CELL VOLUME 88.7 fl (80-96); MEAN PLT VOLUME 9.1 fl (7.5-11.1); MONO % 11.1 % (3.8-10.2); NEUT % 70.8 % (42.8-82.8); PLATELET COUNT 220 K/MM3 (134-434); RBC 4.62 M/mm3 (4.00-5.60); RDW 13.5 % (11.9-15.9); WHITE BLOOD COUNT 10.7 K/mm3 (4.0-10.0)
[2018-01-16] MEDS: SERTRALINE HCL 50 MG TABLET (FP) PO SCH (10:13)
[2018-01-16] MEDS: PRENATAL VITAMINS W/ FOLIC ACID TABLET (FP) PO SCH (10:13)
[2018-01-16] MEDS: CYCLOBENZAPRINE HCL 5 MG TABLET PO PRN ×2 (10:13→22:50)
[2018-01-16] MEDS: busPIRone HCL 10 MG TABLET (FP) PO SCH ×2 (10:13→22:50)
[2018-01-16] MEDS: NICOTINE 14 MG/24 HOURS TOPICAL PATCH TD SCH (10:14)
[2018-01-16] MEDS: ONDANSETRON *ODT* 4 MG TABLET SL PRN (10:40)
--- NOTE | 2018-01-16 13:11 | PN ---
BHS COWS - Scale Resting Pulse: 1= [place] 81-100 Sweatin= Chills/Flushing Restless Observation: 1= Difficult to Sit Still Pupil Size: 0= Normal to Room Light Bone or Joint Aches: 1= Mild Discomfort Runny Nose/ Eye Tearin= Runny Nose/Eyes GI Upset > 30mins: 0= None Tremor Observation of Outstretched Hands: 0= None Yawning Observation: 2= >3x During Session Anxiety or Irritability: 2=Irritable/Anxious Goose Flesh Skin: 3=Piloerection COWS Score: 13 BHS Progress Note (SOAP) Subjective: Fatigue, Anxious, Sweating, Interrupted Sleep. Objective: PATIENT A & O X 3, OBSERVED AMBULATING ON UNIT. NO ACUTE DISTRESS. 01/16/18 13:07 Vital Signs Temperature 97.7 F 01/16/18 09:19 Pulse Rate 91 H 01/16/18 09:19 Respiratory Rate 16 01/16/18 09:19 Blood Pressure 126/61 01/16/18 09:19 O2 Sat by Pulse Oximetry (%) Laboratory Tests 01/14/18 01/14/18 01/15/18 06:00 23:00 06:00 WBC 18.5 H D RBC 4.85 Hgb 14.5 Hct 43.7 MCV 90.1 MCH 29.9 MCHC 33.2 RDW 13.8 Plt Count 178 MPV 9.7 Neutrophils % Lymphocytes % Monocytes % Eosinophils % Basophils % Sodium Potassium Chloride Carbon Dioxide Anion Gap BUN Creatinine Creat Clearance w eGFR Random Glucose Calcium Total Bilirubin AST ALT Alkaline Phosphatase Total Protein Albumin Urine Color Tia Urine Appearance Clear Urine pH 5.0 Ur Specific [place] 1.032 Urine Protein 2+ H Urine Glucose (UA) Negative Urine Ketones Negative Urine Blood Negative Urine Nitrite Negative Urine Bilirubin Negative Urine Urobilinogen 2.0 Ur Leukocyte Esterase Negative Urine WBC (Auto) 2 Urine RBC (Auto) 4 Ur Epithelial Cells Rare Urine Mucus Many RPR Titer Hep C Ab Diagnostic HIV 1&2 Antibody Screen Negative HIV P24 Antigen Negative 01/15/18 01/15/18 01/15/18 06:00 06:00 06:00 WBC RBC Hgb Hct MCV MCH MCHC RDW Plt Count MPV Neutrophils % Lymphocytes % Monocytes % Eosinophils % Basophils % Sodium 136 Potassium 4.2 Chloride 100 Carbon Dioxide 25 Anion Gap 11 BUN 8 Creatinine 0.9 Creat Clearance w eGFR > 60 Random Glucose 84 Calcium 8.8 Total Bilirubin 0.7 AST 151 H D ALT 88 H D Alkaline Phosphatase 118 H Total Protein 8.1 Albumin 4.4 Urine Color Urine Appearance Urine pH Ur Specific [place] Urine Protein Urine Glucose (UA) Urine Ketones Urine Blood Urine Nitrite Urine Bilirubin Urine Urobilinogen Ur Leukocyte Esterase Urine WBC (Auto) Urine RBC (Auto) Ur Epithelial Cells Urine Mucus RPR Titer Nonreactive Hep C Ab Diagnostic <0.1 HIV 1&2 Antibody Screen HIV P24 Antigen 01/16/18 08:00 WBC 10.7 H D RBC 4.62 Hgb 14.1 Hct 41.0 MCV 88.7 MCH 30.4 MCHC 34.3 RDW 13.5 Plt Count 220 D MPV 9.1 Neutrophils % 70.8 Lymphocytes % 15.5 Monocytes % 11.1 H Eosinophils % 2.1 Basophils % 0.5 Sodium Potassium Chloride Carbon Dioxide Anion Gap BUN Creatinine Creat Clearance w eGFR Random Glucose Calcium Total Bilirubin AST ALT Alkaline Phosphatase Total Protein Albumin Urine Color Urine Appearance Urine pH Ur Specific [place] Urine Protein Urine Glucose (UA) Urine Ketones Urine Blood Urine Nitrite Urine Bilirubin Urine Urobilinogen Ur Leukocyte Esterase Urine WBC (Auto) Urine RBC (Auto) Ur Epithelial Cells Urine Mucus RPR Titer Hep C Ab Diagnostic HIV 1&2 Antibody Screen HIV P24 Antigen LABS NOTED. RESULTS OF REPEAT CBC / WBC NOTED. PATIENT DENIES ANY KNOWN HISTORY OF IMMUNE DISORDER OR OF ELEVATED WBC COUNT. 01/16/18 13:10 Assessment: 01/16/18 13:08 WITHDRAWAL SYMPTOMS. Plan: CONTINUE DETOX. INCREASE DAILY PO FLUID INTAKE.
[2018-01-16] MEDS: THIAMINE HCL 100 MG TABLET (FP) PO SCH (22:50)
[2018-01-17] MEDS: ACETAMINOPHEN 325 MG TABLET (FP) PO PRN ×2 (09:11→22:20)
[2018-01-17] MEDS ORDERED: METHADONE HCL 5 MG TABLET (FOR DETOX USE ONLY) PO ONE (10:00)
[2018-01-17] MEDS: PRENATAL VITAMINS W/ FOLIC ACID TABLET (FP) PO SCH (10:14)
[2018-01-17] MEDS: SERTRALINE HCL 50 MG TABLET (FP) PO SCH (10:15)
[2018-01-17] MEDS: NICOTINE 14 MG/24 HOURS TOPICAL PATCH TD SCH (10:16)
[2018-01-17] MEDS: busPIRone HCL 10 MG TABLET (FP) PO SCH ×2 (10:16→22:19)
[2018-01-17] MEDS: diazePAM 5 MG TABLET PO PRN (12:56)
--- NOTE | 2018-01-17 17:15 | PN ---
BHS Progress Note (SOAP) Subjective: Nausea, FAtigue, Sweating. Patient reporting productive cough. Patient is a smoker. Objective: PATIENT A & O X 3, OBSERVED AMBULATING ON UNIT. NO ACUTE DISTRESS. LUNG SOUNDS AUSCULTATED CLEAR AND EQUAL BILATERALLY. 01/17/18 17:13 Vital Signs Temperature 97.4 F L 01/17/18 15:17 Pulse Rate 76 01/17/18 15:17 Respiratory Rate 20 01/17/18 15:17 Blood Pressure 140/78 01/17/18 15:17 O2 Sat by Pulse Oximetry (%) Laboratory Tests 01/14/18 01/14/18 01/15/18 06:00 23:00 06:00 WBC 18.5 H D RBC 4.85 Hgb 14.5 Hct 43.7 MCV 90.1 MCH 29.9 MCHC 33.2 RDW 13.8 Plt Count 178 MPV 9.7 Neutrophils % Lymphocytes % Monocytes % Eosinophils % Basophils % Sodium Potassium Chloride Carbon Dioxide Anion Gap BUN Creatinine Creat Clearance w eGFR Random Glucose Calcium Total Bilirubin AST ALT Alkaline Phosphatase Total Protein Albumin Urine Color Tia Urine Appearance Clear Urine pH 5.0 Ur Specific [place] 1.032 Urine Protein 2+ H Urine Glucose (UA) Negative Urine Ketones Negative Urine Blood Negative Urine Nitrite Negative Urine Bilirubin Negative Urine Urobilinogen 2.0 Ur Leukocyte Esterase Negative Urine WBC (Auto) 2 Urine RBC (Auto) 4 Ur Epithelial Cells Rare Urine Mucus Many RPR Titer Hep C Ab Diagnostic HIV 1&2 Antibody Screen Negative HIV P24 Antigen Negative 01/15/18 01/15/18 01/15/18 06:00 06:00 06:00 WBC RBC Hgb Hct MCV MCH MCHC RDW Plt Count MPV Neutrophils % Lymphocytes % Monocytes % Eosinophils % Basophils % Sodium 136 Potassium 4.2 Chloride 100 Carbon Dioxide 25 Anion Gap 11 BUN 8 Creatinine 0.9 Creat Clearance w eGFR > 60 Random Glucose 84 Calcium 8.8 Total Bilirubin 0.7 AST 151 H D ALT 88 H D Alkaline Phosphatase 118 H Total Protein 8.1 Albumin 4.4 Urine Color Urine Appearance Urine pH Ur Specific [place] Urine Protein Urine Glucose (UA) Urine Ketones Urine Blood Urine Nitrite Urine Bilirubin Urine Urobilinogen Ur Leukocyte Esterase Urine WBC (Auto) Urine RBC (Auto) Ur Epithelial Cells Urine Mucus RPR Titer Nonreactive Hep C Ab Diagnostic <0.1 HIV 1&2 Antibody Screen HIV P24 Antigen 01/16/18 08:00 WBC 10.7 H D RBC 4.62 Hgb 14.1 Hct 41.0 MCV 88.7 MCH 30.4 MCHC 34.3 RDW 13.5 Plt Count 220 D MPV 9.1 Neutrophils % 70.8 Lymphocytes % 15.5 Monocytes % 11.1 H Eosinophils % 2.1 Basophils % 0.5 Sodium Potassium Chloride Carbon Dioxide Anion Gap BUN Creatinine Creat Clearance w eGFR Random Glucose Calcium Total Bilirubin AST ALT Alkaline Phosphatase Total Protein Albumin Urine Color Urine Appearance Urine pH Ur Specific [place] Urine Protein Urine Glucose (UA) Urine Ketones Urine Blood Urine Nitrite Urine Bilirubin Urine Urobilinogen Ur Leukocyte Esterase Urine WBC (Auto) Urine RBC (Auto) Ur Epithelial Cells Urine Mucus RPR Titer Hep C Ab Diagnostic HIV 1&2 Antibody Screen HIV P24 Antigen LABS NOTED. Assessment: 01/17/18 17:14 WITHDRAWAL SYMPTOMS. Plan: CONTINUE DETOX. INCREASE DAILY PO FLUID INTAKE. SYMPTOMATIC TREATMENT OF COUGH RECOMMENDED (GUIAFENESIN, THROAT LOZENGES, FLUIDS ). REPEAT CBC TOMORROW AM TO DETEMRINE CHANGE IN WBC COUNT (IF ANY).
[2018-01-17] MEDS: THIAMINE HCL 100 MG TABLET (FP) PO SCH (22:18)
[2018-01-17] MEDS: diphenhydrAMINE HCL 50 MG CAPSULE PO PRN (22:18)
[2018-01-17] MEDS: guaiFENesin/D-METHORPHAN HB 10 ML UNIT-DOSE CUPS PO PRN (22:21)
[2018-01-18] MEDS ORDERED: METHADONE HCL 10 MG TABLET (FOR DETOX USE ONLY) PO ONE (10:00)
[2018-01-18] MEDS: busPIRone HCL 10 MG TABLET (FP) PO SCH ×2 (10:07→22:26)
[2018-01-18] MEDS: NICOTINE 14 MG/24 HOURS TOPICAL PATCH TD SCH (10:07)
[2018-01-18] MEDS: SERTRALINE HCL 50 MG TABLET (FP) PO SCH (10:07)
[2018-01-18] MEDS: PRENATAL VITAMINS W/ FOLIC ACID TABLET (FP) PO SCH (10:07)
[2018-01-18 10:50] LABS: BASO % 0.6 % (0-2.0); EOS % 1.8 % (0-4.5); HEMATOCRIT 40.1 % (35.4-49); HEMOGLOBIN 13.7 GM/dL (11.7-16.9); LYMPH % 25.6 % (8-40); MCH 30.2 pg (25.7-33.7); MCHC 34.3 g/dl (32.0-35.9); MEAN CELL VOLUME 88.2 fl (80-96); MEAN PLT VOLUME 8.9 fl (7.5-11.1); MONO % 11.9 % (3.8-10.2); NEUT % 60.1 % (42.8-82.8); PLATELET COUNT 236 K/MM3 (134-434); RBC 4.54 M/mm3 (4.00-5.60); RDW 13.2 % (11.9-15.9); WHITE BLOOD COUNT 7.7 K/mm3 (4.0-10.0)
[2018-01-18 10:55] LABS: SGOT/AST 27 U/L (15-37); SGPT/ALT 48 U/L (12-78)
[2018-01-18] MEDS: CYCLOBENZAPRINE HCL 5 MG TABLET PO PRN ×2 (12:15→20:39)
--- NOTE | 2018-01-18 14:55 | PN ---
S Progress Note (SOAP) Subjective: Sweating, interrupted sleep, poor appetite (smoked weed a lot which also helps his appetite so now he's not smoking, his appetite is not good), muscle spasm Objective: 01/18/18 14:52 Last Vital Signs Temp Pulse Resp BP Pulse Ox 96.8 F L 87 18 110/78 01/18/18 14:35 01/18/18 14:35 01/18/18 14:35 01/18/18 14:35 Laboratory Tests 01/14/18 01/14/18 01/15/18 06:00 23:00 06:00 WBC 18.5 H D RBC 4.85 Hgb 14.5 Hct 43.7 MCV 90.1 MCH 29.9 MCHC 33.2 RDW 13.8 Plt Count 178 MPV 9.7 Neutrophils % Lymphocytes % Monocytes % Eosinophils % Basophils % Sodium Potassium Chloride Carbon Dioxide Anion Gap BUN Creatinine Creat Clearance w eGFR Random Glucose Calcium Total Bilirubin AST ALT Alkaline Phosphatase Total Protein Albumin Urine Color Tia Urine Appearance Clear Urine pH 5.0 Ur Specific [place] 1.032 Urine Protein 2+ H Urine Glucose (UA) Negative Urine Ketones Negative Urine Blood Negative Urine Nitrite Negative Urine Bilirubin Negative Urine Urobilinogen 2.0 Ur Leukocyte Esterase Negative Urine WBC (Auto) 2 Urine RBC (Auto) 4 Ur Epithelial Cells Rare Urine Mucus Many RPR Titer Hep C Ab Diagnostic HIV 1&2 Antibody Screen Negative HIV P24 Antigen Negative 01/15/18 01/15/18 01/15/18 06:00 06:00 06:00 WBC RBC Hgb Hct MCV MCH MCHC RDW Plt Count MPV Neutrophils % Lymphocytes % Monocytes % Eosinophils % Basophils % Sodium 136 Potassium 4.2 Chloride 100 Carbon Dioxide 25 Anion Gap 11 BUN 8 Creatinine 0.9 Creat Clearance w eGFR > 60 Random Glucose 84 Calcium 8.8 Total Bilirubin 0.7 AST 151 H D ALT 88 H D Alkaline Phosphatase 118 H Total Protein 8.1 Albumin 4.4 Urine Color Urine Appearance Urine pH Ur Specific [place] Urine Protein Urine Glucose (UA) Urine Ketones Urine Blood Urine Nitrite Urine Bilirubin Urine Urobilinogen Ur Leukocyte Esterase Urine WBC (Auto) Urine RBC (Auto) Ur Epithelial Cells Urine Mucus RPR Titer Nonreactive Hep C Ab Diagnostic <0.1 HIV 1&2 Antibody Screen HIV P24 Antigen 01/16/18 01/18/18 01/18/18 08:00 08:00 08:00 WBC 10.7 H D 7.7 RBC 4.62 4.54 Hgb 14.1 13.7 Hct 41.0 40.1 MCV 88.7 88.2 MCH 30.4 30.2 MCHC 34.3 34.3 RDW 13.5 13.2 Plt Count 220 D 236 MPV 9.1 8.9 Neutrophils % 70.8 60.1 Lymphocytes % 15.5 25.6 D Monocytes % 11.1 H 11.9 H Eosinophils % 2.1 1.8 Basophils % 0.5 0.6 Sodium Potassium Chloride Carbon Dioxide Anion Gap BUN Creatinine Creat Clearance w eGFR Random Glucose Calcium Total Bilirubin AST 27 D ALT 48 D Alkaline Phosphatase Total Protein Albumin Urine Color Urine Appearance Urine pH Ur Specific [place] Urine Protein Urine Glucose (UA) Urine Ketones Urine Blood Urine Nitrite Urine Bilirubin Urine Urobilinogen Ur Leukocyte Esterase Urine WBC (Auto) Urine RBC (Auto) Ur Epithelial Cells Urine Mucus RPR Titer Hep C Ab Diagnostic HIV 1&2 Antibody Screen HIV P24 Antigen Labs reviewed: UA 2+ protein Assessment: 01/18/18 14:54 Withdrawal symptoms Noted with proteinuria Plan: Continue detox Proteinuria: encouraged to drink lots of water, repeat UA
[2018-01-18] MEDS ORDERED: hydrOXYzine PAMOATE 50 MG CAPSULE (FP) PO PRN (19:09)
[2018-01-18] MEDS: diphenhydrAMINE HCL 50 MG CAPSULE PO PRN (22:26)
[2018-01-18] MEDS: THIAMINE HCL 100 MG TABLET (FP) PO SCH (22:26)
[2018-01-18] MEDS: ACETAMINOPHEN 325 MG TABLET (FP) PO PRN (22:28)
[2018-01-18 22:53] LABS: URINE APPEARANCE CLEAR; URINE BILIRUBIN NEGATIVE (NEGATIVE); URINE BLOOD NEGATIVE (NEGATIVE); URINE COLOR LTYELLOW; URINE GLUCOSE (UA) NEGATIVE (NEGATIVE); URINE KETONE NEGATIVE (NEGATIVE); URINE LEUK ESTERASE NEGATIVE (NEGATIVE); URINE NITRITE NEGATIVE (NEGATIVE); URINE PROTEIN NEGATIVE (NEGATIVE); URINE UROBILINOGEN NEGATIVE mg/dL (0.2-1.0)
[2018-01-19] MEDS ORDERED: METHADONE HCL 5 MG TABLET (FOR DETOX USE ONLY) PO ONE (06:00)
[2018-01-19 06:34] VITALS: BP 115/68; PULSE 72; TEMP 96.7
--- NOTE | 2018-01-19 10:27 | PN ---
S Progress Note (SOAP) Subjective: Anxiety Feels okay Objective: 01/19/18 10:22 A & O x 3, gait steady No acute distress noted Vital Signs Temperature 96.7 F L 01/19/18 06:33 Pulse Rate 72 01/19/18 06:33 Respiratory Rate 18 01/19/18 06:33 Blood Pressure 115/68 01/19/18 06:33 O2 Sat by Pulse Oximetry (%) Assessment: 01/19/18 10:22 Detox completed successfully Plan: discharge to home
--- NOTE | 2018-01-19 10:51 | DS ---
[facility] Detox Discharge Summary Admission Date: 01/14/18 Discharge Date: 01/19/18 - History Additional Comments: Pt A & O x 3, for discharge home. Pt states he will have his mother for support at home, and intends to f/u with his psychiatrist on 01/21 Will also do outpatient aftercare based on discussions with his PMD. Pertinent Past History: anxiety paranoid schizophrenia - Physical Exam Results Vital Signs: Vital Signs Temperature 96.7 F L 01/19/18 06:33 Pulse Rate 72 01/19/18 06:33 Respiratory Rate 18 01/19/18 06:33 Blood Pressure 115/68 01/19/18 06:33 O2 Sat by Pulse Oximetry (%) Pertinent Admission Physical Exam Findings: withdrawal sx - Treatment Hospital Course: Detox Protocol Followed, Detoxed Safely, Responded well, Discharged Condition Good Patient has Accepted a Rehab Referral to: O/P rehab - Medication Discharge Medications: Ambulatory Orders Buspirone HCl [Buspar -] 10 mg PO BID 12/03/17 Sertraline HCl [Zoloft -] 50 mg PO DAILY 12/03/17 - Diagnosis (1) Opioid dependence with withdrawal Current Visit: Yes Status: Acute (2) Insomnia Current Visit: Yes Status: Acute (3) Substance induced mood disorder Current Visit: Yes Status: Acute (4) Anxiety and depression Current Visit: Yes Status: Chronic (5) RAMÍREZ (generalized anxiety disorder) Current Visit: Yes Status: Suspected (6) Cannabis dependence Current Visit: No Status: Chronic (7) Nicotine dependence Current Visit: No Status: Chronic - AMA Did Patient Leave Against Medical Advice: No
== END 2018-01-19 10:30 | disposition home or self-care (01) | DRG 773 ==
LOC: YASAS 10:45 → Y3N 16:23
PROVIDERS: ADMIT Internal Medicine; ATTEND Internal Medicine
PROC: HZ2ZZZZ Detoxification Services for Substance Abuse Treatment (ICD-10-PCS; principal; 2018-01-14)
DX: F11.23 Opioid dependence with withdrawal (principal); F12.20 Cannabis dependence, uncomplicated; F17.210 Nicotine dependence, cigarettes, uncomplicated; F19.24 Other psychoactive substance dependence with psychoactive substance-induced mood disorder; F41.1 Generalized anxiety disorder; F41.8 Other specified anxiety disorders; F32.9 Major depressive disorder, single episode, unspecified; G47.00 Insomnia, unspecified
CPT/HCPCS: 36415; 80053; 81003; 81015; 84450; 84460; 85025; 85027; 86593; 87389; 93005; 93010; Q0162

== ENCOUNTER 2018-03-10 12:02 | Inpatient (IN) | payer OTHER ==
[2018-03-10 14:32] VITALS: BMI 28.1
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
[2018-03-10] MEDS ORDERED: MAGNESIUM HYDROX 2400MG/30ML ORAL SUSPENSION 30 ML CUP PO PRN (20:53)
[2018-03-10] MEDS ORDERED: ACETAMINOPHEN 325 MG TABLET (FP) PO PRN (20:53)
[2018-03-10] MEDS ORDERED: METHADONE HCL 10 MG TABLET (FOR DETOX USE ONLY) PO ONE ×2 (20:53→23:00)
[2018-03-10] MEDS ORDERED: IBUPROFEN 400 MG TABLET (FP) PO PRN (20:53)
[2018-03-10] MEDS ORDERED: guaiFENesin/D-METHORPHAN HB 10 ML UNIT-DOSE CUPS PO PRN (20:53)
[2018-03-10] MEDS ORDERED: MENTHOL/PHENOL 1 EACH UD MM PRN (20:53)
[2018-03-10] MEDS ORDERED: NICOTINE POLACRILEX 2 MG GUM BC PRN (20:53)
[2018-03-10] MEDS ORDERED: MAG HYDROX/AL HYDROX/SIMETH 30 ML UNIT-DOSE CUP PO PRN (20:53)
[2018-03-10] MEDS ORDERED: hydrOXYzine PAMOATE 50 MG CAPSULE (FP) PO PRN (20:53)
[2018-03-10] MEDS ORDERED: LOPERAMIDE HCL 2 MG CAPSULE PO PRN (20:53)
[2018-03-10] MEDS ORDERED: P-EPHED 60MG/TRIPROLIDI 2.5MG TABLET PO PRN (20:53)
[2018-03-10] MEDS ORDERED: MAGNESIUM CITRATE 300 ML BOTTLE PO PRN (20:53)
[2018-03-10] MEDS: THIAMINE HCL 100 MG TABLET (FP) PO SCH (22:10)
[2018-03-10] MEDS: diazePAM 5 MG TABLET PO PRN (22:10)
[2018-03-11 02:53] LABS: URINE COLOR YELLOW
[2018-03-11 02:54] LABS: URINE APPEARANCE SL CLOUDY; URINE BILIRUBIN NEGATIVE (<2.0 mg/dL); URINE GLUCOSE (UA) NEGATIVE (NEGATIVE); URINE KETONE NEGATIVE (NEGATIVE); URINE LEUK ESTERASE NEGATIVE (NEGATIVE); URINE NITRITE NEGATIVE (NEGATIVE); URINE PROTEIN NEGATIVE (NEGATIVE); URINE UROBILINOGEN NORMAL mg/dL (0.2-1.0)
--- NOTE | 2018-03-11 09:14 | CONSULT ---
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 Substance Abuse History: - Smoking Cessation. Smoking history: Current every day smoker. Have you smoked in the past 12 months: Yes. Aproximately how many cigarettes per day: 8. Cigars Per Day: 0. Hx Chewing Tobacco Use: No. Initiated information on smoking cessation: Yes. 'Breaking Loose' booklet given : 03/10/18. - Substance & Tx. History. Hx Alcohol Use: No. Hx Substance Use: Yes. Substance Use Type: Marijuana, Opiates. Hx Substance Use Treatment: Yes ( [facility] detox 01/14/18 - 01/19/18). - Substances Abused. Oxycodone. Route: Oral. Frequency: Daily. Amount used: 7 tabs. (10 mg.). Age of first use: 22. Date of Last Use: 03/10/18. Marijuana. Route: Smoking. Frequency: Daily. Amount used: $20. Age of first use: 18. Date of Last Use: 03/10/18 Medical History: Denies significant medical issues Psychiatric History: Stewart fischer history of depression and anxiety, reports taking prior to admission: Zoloft 50mg poqd. Buspar 10mg po bid Physical/Sexual Abuse/Trauma History: Denies Additional Comment: Zoloft 50mg poqd. Buspar 10mg po bid Mental Status Exam - Mental Status Exam Alert and Oriented to: Person Cognitive Function: Fair Patient Appearance: Unkempt Mood: Sad Affect: Mood Congruent Patient Behavior: Cooperative Speech Pattern: Appropriate Voice Loudness: Mildly Soft/Quiet Thought Process: Goal Oriented Thought Disorder: Being Controlled Hallucinations: Denies Suicidal Ideation: Denies Homicidal Ideation: Denies Insight/Judgement: Fair Sleep: Fair Appetite: Weight loss Muscle strength/Tone: Normal Gait/Station: Normal Additional Comments: Zoloft 50mg poqd. Buspar 10mg po bid Psychiatric Findings - Problem List ([place] 1, 2,3) (1) Cannabis dependence Current Visit: Yes Status: Acute (2) Opioid dependence with withdrawal Current Visit: Yes Status: Acute (3) Anxiety and depression Current Visit: Yes Status: Chronic (4) Substance induced mood disorder Current Visit: No Status: Acute - Initial Treatment Plan Initial Treatment Plan: Zoloft 50mg poqd. Buspar 10mg po bid
[2018-03-11] MEDS ORDERED: METHADONE HCL 10 MG TABLET (FOR DETOX USE ONLY) PO ONE (10:00)
[2018-03-11 10:15] LABS: HEMATOCRIT 41.7 % (35.4-49); MCH 29.8 pg (25.7-33.7); MCHC 33.6 g/dl (32.0-35.9); MEAN CELL VOLUME 88.7 fl (80-96); MEAN PLT VOLUME 9.4 fl (7.5-11.1); PLATELET COUNT 173 K/MM3 (134-434); RDW 13.6 % (11.9-15.9); WHITE BLOOD COUNT 7.5 K/mm3 (4.0-10.0)
[2018-03-11] MEDS: SERTRALINE HCL 50 MG TABLET (FP) PO SCH (10:17)
[2018-03-11] MEDS: NICOTINE 14 MG/24 HOURS TOPICAL PATCH TD SCH (10:18)
[2018-03-11] MEDS: diazePAM 5 MG TABLET PO PRN ×2 (10:18→22:39)
[2018-03-11] MEDS: PRENATAL VITAMINS W/ FOLIC ACID TABLET (FP) PO SCH (10:18)
[2018-03-11] MEDS: busPIRone HCL 10 MG TABLET (FP) PO SCH ×2 (10:18→22:39)
[2018-03-11 11:10] LABS: CHLORIDE 110 mmol/L (98-107); POTASSIUM 4.5 mmol/L (3.5-5.1); SODIUM 145 mmol/L (136-145)
--- NOTE | 2018-03-11 11:42 | PN ---
BHS COWS - Scale Resting Pulse: 0= [place] 80 or Below Sweatin= Chills/Flushing Restless Observation: 1= Difficult to Sit Still Pupil Size: 1= Pupils >than Normal Bone or Joint Aches: 2= Severe Diffuse Aches Runny Nose/ Eye Tearin= Nasal Congestion GI Upset > 30mins: 1= Stomach Cramp Tremor Observation of Outstretched Hands: 2= Slight Tremor Visible Yawning Observation: 2= >3x During Session Anxiety or Irritability: 2=Irritable/Anxious Goose Flesh Skin: 0=Smooth Skin COWS Score: 13 BHS Progress Note (SOAP) Subjective: joint pain body ache sweat tremor trouble sleep at night Objective: 03/11/18 11:41 Vital Signs Temperature 98.1 F 03/11/18 09:11 Pulse Rate 69 03/11/18 09:11 Respiratory Rate 16 03/11/18 09:11 Blood Pressure 98/48 03/11/18 09:11 O2 Sat by Pulse Oximetry (%) Laboratory Last Values WBC 7.5 K/mm3 (4.0-10.0) 03/11/18 07:30 RBC 4.70 M/mm3 (4.00-5.60) 03/11/18 07:30 Hgb 14.0 GM/dL (11.7-16.9) 03/11/18 07:30 Hct 41.7 % (35.4-49) 03/11/18 07:30 MCV 88.7 fl (80-96) 03/11/18 07:30 MCH 29.8 pg (25.7-33.7) 03/11/18 07:30 MCHC 33.6 g/dl (32.0-35.9) 03/11/18 07:30 RDW 13.6 % (11.9-15.9) 03/11/18 07:30 Plt Count 173 K/MM3 (134-434) D 03/11/18 07:30 MPV 9.4 fl (7.5-11.1) 03/11/18 07:30 Urine Color Yellow 03/11/18 00:03 Urine Appearance Sl cloudy 03/11/18 00:03 Urine pH 5.0 (5.0-8.0) 03/11/18 00:03 Ur Specific [place] 1.031 (1.001-1.035) 03/11/18 00:03 Urine Protein Negative (NEGATIVE) 03/11/18 00:03 Urine Glucose (UA) Negative (NEGATIVE) 03/11/18 00:03 Urine Ketones Negative (NEGATIVE) 03/11/18 00:03 Urine Blood Negative (NEGATIVE) 03/11/18 00:03 Urine Nitrite Negative (NEGATIVE) 03/11/18 00:03 Urine Bilirubin Negative (<2.0 mg/dL) 03/11/18 00:03 Urine Urobilinogen Normal mg/dL (0.2-1.0) 03/11/18 00:03 Ur Leukocyte Esterase Negative (NEGATIVE) 03/11/18 00:03 lab noted Assessment: 03/11/18 11:41 withdrawal sx Plan: continue detox
[2018-03-11 12:17] LABS: ALK PHOS 77 U/L (45-117); ANION GAP 8 (8-16); BILIRUBIN,TOTAL 0.7 mg/dL (0.2-1.0); BLOOD UREA NITROGEN 11 mg/dL (7-18); CALCIUM 8.6 mg/dL (8.5-10.1); CO2 27 mmol/L (21-32); CREATININE 0.8 mg/dL (0.7-1.3); GLUCOSE,RANDOM 83 mg/dL (74-106); SGOT/AST 15 U/L (15-37); SGPT/ALT 18 U/L (12-78); TOT PROT 6.7 g/dl (6.4-8.2)
[2018-03-11] MEDS ORDERED: BACLOFEN 10 MG TABLET (FP) PO ONE (12:30)
--- NOTE | 2018-03-11 13:59 | EKG ---
Test Reason : Blood Pressure : / mmHG Vent. Rate : 071 BPM Atrial Rate : 071 BPM P-R Int : 130 ms QRS Dur : 084 ms QT Int : 378 ms P-R-T Axes : 053 074 053 degrees QTc Int : 410 ms SINUS RHYTHM WITH PREMATURE ATRIAL COMPLEXES OTHERWISE NORMAL ECG WHEN COMPARED WITH ECG OF 14-JAN-2018 17:09, PREMATURE ATRIAL COMPLEXES ARE NOW PRESENT Confirmed by JOS TALAMANTES, ROLANDO ([id number]) on 03/11/2018 1:59:21 PM Referred By: Confirmed By:ROLANDO ARGUELLO MD
[2018-03-11] MEDS: THIAMINE HCL 100 MG TABLET (FP) PO SCH (22:39)
[2018-03-11] MEDS: MELATONIN 5 MG TABLETS PO PRN (22:40)
[2018-03-12] MEDS ORDERED: METHADONE HCL 5 MG TABLET (FOR DETOX USE ONLY) PO ONE (10:00)
--- NOTE | 2018-03-12 10:21 | PN ---
S COWS - Scale Resting Pulse: 0= [place] 80 or Below Sweatin= Chills/Flushing Restless Observation: 1= Difficult to Sit Still Pupil Size: 1= Pupils >than Normal Bone or Joint Aches: 1= Mild Discomfort Runny Nose/ Eye Tearin= Nasal Congestion GI Upset > 30mins: 1= Stomach Cramp Tremor Observation of Outstretched Hands: 2= Slight Tremor Visible Yawning Observation: 2= >3x During Session Anxiety or Irritability: 2=Irritable/Anxious Goose Flesh Skin: 0=Smooth Skin COWS Score: 12 S Progress Note (SOAP) Subjective: joint pain body ache sweat tremor trouble sleep at night "I need to leave 03/14/18" Objective: 03/12/18 10:24 Vital Signs Temperature 98.1 F 03/12/18 09:21 Pulse Rate 68 03/12/18 09:21 Respiratory Rate 18 03/12/18 09:21 Blood Pressure 108/61 03/12/18 09:21 O2 Sat by Pulse Oximetry (%) Laboratory Last Values WBC 7.5 K/mm3 (4.0-10.0) 03/11/18 07:30 RBC 4.70 M/mm3 (4.00-5.60) 03/11/18 07:30 Hgb 14.0 GM/dL (11.7-16.9) 03/11/18 07:30 Hct 41.7 % (35.4-49) 03/11/18 07:30 MCV 88.7 fl (80-96) 03/11/18 07:30 MCH 29.8 pg (25.7-33.7) 03/11/18 07:30 MCHC 33.6 g/dl (32.0-35.9) 03/11/18 07:30 RDW 13.6 % (11.9-15.9) 03/11/18 07:30 Plt Count 173 K/MM3 (134-434) D 03/11/18 07:30 MPV 9.4 fl (7.5-11.1) 03/11/18 07:30 Sodium 145 mmol/L (136-145) 03/11/18 07:30 Potassium 4.5 mmol/L (3.5-5.1) 03/11/18 07:30 Chloride 110 mmol/L (98-107) H 03/11/18 07:30 Carbon Dioxide 27 mmol/L (21-32) 03/11/18 07:30 Anion Gap 8 (8-16) 03/11/18 07:30 BUN 11 mg/dL (7-18) D 03/11/18 07:30 Creatinine 0.8 mg/dL (0.7-1.3) 03/11/18 07:30 Creat Clearance w eGFR > 60 (>60) 03/11/18 07:30 Random Glucose 83 mg/dL (74-106) 03/11/18 07:30 Calcium 8.6 mg/dL (8.5-10.1) 03/11/18 07:30 Total Bilirubin 0.7 mg/dL (0.2-1.0) 03/11/18 07:30 AST 15 U/L (15-37) D 03/11/18 07:30 ALT 18 U/L (12-78) D 03/11/18 07:30 Alkaline Phosphatase 77 U/L (45-117) D 03/11/18 07:30 Total Protein 6.7 g/dl (6.4-8.2) 03/11/18 07:30 Albumin 4.0 g/dl (3.4-5.0) 03/11/18 07:30 Urine Color Yellow 03/11/18 00:03 Urine Appearance Sl cloudy 03/11/18 00:03 Urine pH 5.0 (5.0-8.0) 03/11/18 00:03 Ur Specific [place] 1.031 (1.001-1.035) 03/11/18 00:03 Urine Protein Negative (NEGATIVE) 03/11/18 00:03 Urine Glucose (UA) Negative (NEGATIVE) 03/11/18 00:03 Urine Ketones Negative (NEGATIVE) 03/11/18 00:03 Urine Blood Negative (NEGATIVE) 03/11/18 00:03 Urine Nitrite Negative (NEGATIVE) 03/11/18 00:03 Urine Bilirubin Negative (<2.0 mg/dL) 03/11/18 00:03 Urine Urobilinogen Normal mg/dL (0.2-1.0) 03/11/18 00:03 Ur Leukocyte Esterase Negative (NEGATIVE) 03/11/18 00:03 RPR Titer Nonreactive (NONREACTIVE) 03/11/18 07:30 lab noted 03/12/18 10:45 alert oriented x 3 Assessment: 03/12/18 10:24 withdrawal sx 03/12/18 10:46 opioid detox regimen modification Plan: continue detox estimate discharge on 03/14/18 as patient preference
[2018-03-12] MEDS: NICOTINE 14 MG/24 HOURS TOPICAL PATCH TD SCH (10:47)
[2018-03-12] MEDS: SERTRALINE HCL 50 MG TABLET (FP) PO SCH (10:50)
[2018-03-12] MEDS: PRENATAL VITAMINS W/ FOLIC ACID TABLET (FP) PO SCH (10:50)
[2018-03-12] MEDS: busPIRone HCL 10 MG TABLET (FP) PO SCH ×2 (10:50→22:31)
[2018-03-12] MEDS: diazePAM 5 MG TABLET PO PRN ×2 (11:25→17:59)
[2018-03-12] MEDS: THIAMINE HCL 100 MG TABLET (FP) PO SCH (22:31)
[2018-03-12] MEDS: CYCLOBENZAPRINE HCL 5 MG TABLET PO SCH (22:32)
[2018-03-12] MEDS: MELATONIN 5 MG TABLETS PO PRN (22:32)
[2018-03-13] MEDS: CYCLOBENZAPRINE HCL 5 MG TABLET PO SCH (05:35)
[2018-03-13 06:24] VITALS: BP 116/73; PULSE 66; TEMP 97.7
[2018-03-13] MEDS ORDERED: METHADONE HCL 10 MG TABLET (FOR DETOX USE ONLY) PO ONE (10:00)
[2018-03-13] MEDS ORDERED: METHADONE HCL 5 MG TABLET (FOR DETOX USE ONLY) PO ONE (10:00)
[2018-03-13] MEDS: PRENATAL VITAMINS W/ FOLIC ACID TABLET (FP) PO SCH (10:26)
[2018-03-13] MEDS: NICOTINE 14 MG/24 HOURS TOPICAL PATCH TD SCH (10:27)
[2018-03-13] MEDS: SERTRALINE HCL 50 MG TABLET (FP) PO SCH (10:27)
[2018-03-13] MEDS: busPIRone HCL 10 MG TABLET (FP) PO SCH (10:27)
--- NOTE | 2018-03-13 12:37 | DS ---
[facility] Detox Discharge Summary Admission Date: 03/10/18 Discharge Date: 03/13/18 - History Present History: Opioid Dependence Additional Comments: 22 years old male admitted on 03/10/18 for opioid withdrawal sx insists to terminate the opioid detox regimen wants to leave the detox facility health teaching on addiction and community self management groups - Physical Exam Results Vital Signs: Vital Signs Temperature 97.7 F 03/13/18 06:23 Pulse Rate 66 03/13/18 06:23 Respiratory Rate 18 03/13/18 06:30 Blood Pressure 116/73 03/13/18 06:23 O2 Sat by Pulse Oximetry (%) Pertinent Admission Physical Exam Findings: withdrawal sx Vital Signs Temperature 97.7 F 03/13/18 06:23 Pulse Rate 66 03/13/18 06:23 Respiratory Rate 18 03/13/18 06:30 Blood Pressure 116/73 03/13/18 06:23 O2 Sat by Pulse Oximetry (%) Laboratory Last Values WBC 7.5 K/mm3 (4.0-10.0) 03/11/18 07:30 RBC 4.70 M/mm3 (4.00-5.60) 03/11/18 07:30 Hgb 14.0 GM/dL (11.7-16.9) 03/11/18 07:30 Hct 41.7 % (35.4-49) 03/11/18 07:30 MCV 88.7 fl (80-96) 03/11/18 07:30 MCH 29.8 pg (25.7-33.7) 03/11/18 07:30 MCHC 33.6 g/dl (32.0-35.9) 03/11/18 07:30 RDW 13.6 % (11.9-15.9) 03/11/18 07:30 Plt Count 173 K/MM3 (134-434) D 03/11/18 07:30 MPV 9.4 fl (7.5-11.1) 03/11/18 07:30 Sodium 145 mmol/L (136-145) 03/11/18 07:30 Potassium 4.5 mmol/L (3.5-5.1) 03/11/18 07:30 Chloride 110 mmol/L (98-107) H 03/11/18 07:30 Carbon Dioxide 27 mmol/L (21-32) 03/11/18 07:30 Anion Gap 8 (8-16) 03/11/18 07:30 BUN 11 mg/dL (7-18) D 03/11/18 07:30 Creatinine 0.8 mg/dL (0.7-1.3) 03/11/18 07:30 Creat Clearance w eGFR > 60 (>60) 03/11/18 07:30 Random Glucose 83 mg/dL (74-106) 03/11/18 07:30 Calcium 8.6 mg/dL (8.5-10.1) 03/11/18 07:30 Total Bilirubin 0.7 mg/dL (0.2-1.0) 03/11/18 07:30 AST 15 U/L (15-37) D 03/11/18 07:30 ALT 18 U/L (12-78) D 03/11/18 07:30 Alkaline Phosphatase 77 U/L (45-117) D 03/11/18 07:30 Total Protein 6.7 g/dl (6.4-8.2) 03/11/18 07:30 Albumin 4.0 g/dl (3.4-5.0) 03/11/18 07:30 Urine Color Yellow 03/11/18 00:03 Urine Appearance Sl cloudy 03/11/18 00:03 Urine pH 5.0 (5.0-8.0) 03/11/18 00:03 Ur Specific [place] 1.031 (1.001-1.035) 03/11/18 00:03 Urine Protein Negative (NEGATIVE) 03/11/18 00:03 Urine Glucose (UA) Negative (NEGATIVE) 03/11/18 00:03 Urine Ketones Negative (NEGATIVE) 03/11/18 00:03 Urine Blood Negative (NEGATIVE) 03/11/18 00:03 Urine Nitrite Negative (NEGATIVE) 03/11/18 00:03 Urine Bilirubin Negative (<2.0 mg/dL) 03/11/18 00:03 Urine Urobilinogen Normal mg/dL (0.2-1.0) 03/11/18 00:03 Ur Leukocyte Esterase Negative (NEGATIVE) 03/11/18 00:03 RPR Titer Nonreactive (NONREACTIVE) 03/11/18 07:30 lab noted - Treatment Hospital Course: Detox Protocol Followed, Responded well Patient has Accepted a Rehab Referral to: anurag thrasher as per counselor arranged - Medication Discharge Medications: Ambulatory Orders Sertraline HCl [Zoloft -] 50 mg PO DAILY 12/03/17 Buspirone HCl [Buspar -] 10 mg PO BID #60 tablet 03/11/18 Sertraline HCl [Zoloft -] 50 mg PO DAILY #30 tablet 03/11/18 - Diagnosis (1) Opioid dependence with withdrawal Status: Acute (2) Nicotine dependence Status: Acute Qualifiers: Nicotine product type: cigarettes Substance use status: in withdrawal Qualified Code(s): F17.213 - Nicotine dependence, cigarettes, with withdrawal - AMA Did Patient Leave Against Medical Advice: Yes
[2018-03-14] MEDS ORDERED: METHADONE HCL 5 MG TABLET (FOR DETOX USE ONLY) PO ONE (06:00)
[2018-03-14] MEDS ORDERED: METHADONE HCL 10 MG TABLET (FOR DETOX USE ONLY) PO ONE (10:00)
[2018-03-15] MEDS ORDERED: METHADONE HCL 5 MG TABLET (FOR DETOX USE ONLY) PO ONE (06:00)
== END 2018-03-13 11:26 | disposition left against medical advice (07) | DRG 770 ==
LOC: YASAS 12:02 → Y6N 17:07
PROVIDERS: ADMIT Surgery; ATTEND Surgery
PROC: HZ2ZZZZ Detoxification Services for Substance Abuse Treatment (ICD-10-PCS; principal; 2018-03-10)
DX: F11.23 Opioid dependence with withdrawal (principal); F12.20 Cannabis dependence, uncomplicated; F17.213 Nicotine dependence, cigarettes, with withdrawal; F19.24 Other psychoactive substance dependence with psychoactive substance-induced mood disorder; F41.8 Other specified anxiety disorders; Z86.19 Personal history of other infectious and parasitic diseases
CPT/HCPCS: 36415; 80053; 81003; 85027; 86593; 93005; 93010; J0475

== ENCOUNTER 2019-03-03 15:59 | Inpatient (IN) | payer OTHER ==
[2019-03-03 16:51] VITALS: BMI 28.1
--- NOTE | 2019-03-03 17:31 | HP ---
"COWS - Scale Resting Pulse: 1= [place] 81-100 Sweatin=Flushed/Facial Moisture Restless Observation: 1= Difficult to Sit Still Pupil Size: 2= Moderately Dilated (Pupils = 4 mm) Bone or Joint Aches: 0= None Runny Nose/ Eye Tearin= Runny Nose/Eyes GI Upset > 30mins: 2= Nausea/Diarrhea (Vomiting. No diarrhea) Tremor Observation: 4= Gross Tremor/Twitching Yawning Observation: 0= None Anxiety or Irritability: 1=Feels Anxious/Irritable Goose Flesh Skin: 0=Smooth Skin COWS Score: 15 CIWA Score - Admission Criteria OASAS Guidelines: Admission for Medically Managed Detox: Requires at least one of the followin. CIWA greater than 12 2. Seizures within the past 24 hours 3. Delirium tremens within the past 24 hours 4. Hallucinations within the past 24 hours 5. Acute intervention needed for co occurring medical disorder 6. Acute intervention needed for co occurring psychiatric disorder 7. Severe withdrawal that cannot be handled at a lower level of care (continued vomiting, continued diarrhea, abnormal vital signs) requiring intravenous medication and/or fluids 8. Admission ROS [facility] Chief Complaint: Having withdrawals from heroin. Allergies/Adverse Reactions: Allergies Allergy/AdvReac Type Severity Reaction Status Date / Time No Known Allergies Allergy Verified 03/03/19 16:42 History of Present Illness: Here for detox from oxycodone and heroin. Oxycodone use began at age 21. Was using 90-120 mg PO Daily. Switched to heroin 2 weeks ago because heroin was cheaper. Currrent use is 6 bags a day. Sniffs opiates. States tried to quit by using Suboxone - which he stated caused increased anxiety and took some benzo's- Marijuana started use at age 19. Current use 3-4x/week Nicotine started use at age 19. States does not need Nicotine patch or gum. PMHx: Denies significant PMH MHHx: Depression. Was taking Buspar(stopped) Currently taking Zoloft daily. Denies thoughts of harming self or others. Last saw a provider approx 4 months ago @# [facility]. Search Terms: [place], 1995 Search Date: 03/03/2019 05:29:26 PM The Drug Utilization Report below displays all of the controlled substance prescriptions, if any, that your patient has filled in the last twelve months. The information displayed on this report is compiled from pharmacy submissions to the Department, and accurately reflects the information as submitted by the pharmacies. This report was requested by: Netta Singh | Reference #: [id number] There are no results for the search terms that you entered. Search Terms: [place], 1995 Search Date: 03/03/2019 05:30:05 PM The Drug Utilization Report below displays all of the controlled substance prescriptions, if any, that your patient has filled in the last twelve months. The information displayed on this report is compiled from pharmacy submissions to the Department, and accurately reflects the information as submitted by the pharmacies. This report was requested by: Netta Singh | Reference #: [id number] There are no results for the search terms that you entered. Exam Limitations: No Limitations - Ebola screening Have you traveled outside of the country in the last 21 days: No Have you had contact with anyone from an Ebola affected area: No Have you been sick,other than usual withdrawal symptoms: No (Denies recent exposure to measles.) Do you have a fever: No - Review of Systems Constitutional: Diaphoresis, Changes in sleep (Difficulty falling asleep) EENT: reports: Nose Congestion Respiratory: reports: No Symptoms reported Cardiac: reports: Palpitations (When anxious. Denies chest pain/Sob) GI: reports: Nausea, Vomiting : reports: No Symptoms Reported Musculoskeletal: reports: Muscle Pain (Generalized muscle aches) Integumentary: reports: No Symptoms Reported Neuro: reports: Headache (Temporal headache - 'strong'), Tremors Endocrine: reports: No Symptoms Reported Hematology: reports: No Symptoms Reported Psychiatric: reports: Judgement Intact, Orientated x3 (Missed date by 1 day), Agitated, Anxious, Depressed (Denies thoughts of harming self or others.), Disorientated Patient History - Patient Medical History Hx Anemia: No Hx Asthma: No Hx Chronic Obstructive Pulmonary Disease (COPD): No Hx Cancer: No Hx Cardiac Disorders: No Hx Congestive Heart Failure: No Hx Hypertension: No Hx Hypercholesterolemia: No Hx Pacemaker: No HX Cerebrovascular Accident: No Hx Seizures: No Hx Dementia: No Hx Diabetes: No Hx Gastrointestinal Disorders: No Hx Liver Disease: No Hx Genitourinary Disorders: No Hx Sexually Transmitted Disorders: Yes (Chlamydia ) Hx Renal Disease (ESRD): No Hx Thyroid Disease: No Hx Human Immunodeficiency Virus (HIV): No (January 2018) Hx Hepatitis C: No Hx Depression: Yes Hx Suicide Attempt: No Hx Bipolar Disorder: No Hx Schizophrenia: No - Patient Surgical History Past Surgical History: Yes Hx Neurologic Surgery: No Hx Cataract Extraction: No Hx Cardiac Surgery: No Hx Lung Surgery: No Hx Breast Surgery: No Hx Breast Biopsy: No Hx Abdominal Surgery: No Hx Appendectomy: No Hx Cholecystectomy: Yes (Congenital Gall Bladder Problem) Hx Genitourinary Surgery: No Hx Section: No Hx Orthopedic Surgery: No Anesthesia Reaction: No - PPD History Previous Implant?: Yes Documented Results: Negative w/proof Implanted On Prior [facility] Admission?: Yes Date: 12/05/17 Results: 0 mm PPD to be Administered?: No - Smoking Cessation Smoking history: Current every day smoker Have you smoked in the past 12 months: Yes Aproximately how many cigarettes per day: 6 Cigars Per Day: 0 Hx Chewing Tobacco Use: No Initiated information on smoking cessation: Yes 'Breaking Loose' booklet given: 03/03/19 - Substances abused Heroin Substance route: Inhalation Frequency: Daily Amount used: 5-6 BAGS Age of first use: 23 Date of last use: 03/03/19 Other Other (specify): OXYCODONE Substance route: Oral Frequency: Daily Amount used: 3-4 30 MG PILLS DAILY Age of first use: 21 Date of last use: 02/17/19 Family Disease History - Family Disease History Family Disease History: Diabetes: Father (), Brother, Heart Disease: Father, Other: Father Admission Physical Exam [facility] - Vital Signs Vital Signs: Vital Signs - 24 hr 03/03/19 03/03/19 16:40 17:13 Temperature 99.8 F H 99.8 F H Pulse Rate 86 86 Respiratory 18 18 Rate Blood Pressure 129/80 129/80 - Physical General Appearance: Yes: Nourished, Mild Distress, Tremorous, Sweating, Anxious HEENTM: Yes: EOMI, Hearing grossly Normal, Normocephalic, TWILA (Pupils = 4 mm), Pharynx Normal, Rhinorrhea Respiratory: Yes: Lungs Clear, Normal Breath Sounds, No Respiratory Distress Neck: Yes: No masses,lesions,Nodules, Supple Breast: Yes: Breast Exam Deferred Cardiology: Yes: Regular Rhythm, Regular Rate, S1, S2 Abdominal: Yes: Non Tender, Soft, Increased Bowel Sounds Genitourinary: Yes: Within Normal Limits Back: Yes: Normal Inspection Musculoskeletal: Yes: full range of Motion, Gait Steady Extremities: Yes: Normal Capillary Refill, Normal Range of Motion, Tremors ( Gross tremors when arms elevated) 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 Level of Care: Medically Managed Detox Regimen/Protocol: Methadone Claeared for Rehab Admission: No Breathalyzer - Breathalyzer Breathalyzer: 0 Urine Drug Screen - Test Device Lot number: [id number] Expiration date: 10/02/20 - Control Is test valid?: Yes - Results Drug screen NEGATIVE: No Urine drug screen results: THC-Marijuana, FEN-Fentanyl, MOP-Opiates, BZO- Benzodiazepines, BUP-Suboxone Inpatient Rehab Admission - Rehab Decision to Admit Inpatient rehab admission?: No"
[2019-03-03] MEDS ORDERED: MENTHOL/PHENOL 1 EACH UD MM PRN (18:16)
[2019-03-03] MEDS ORDERED: ACETAMINOPHEN 325 MG TABLET (FP) PO PRN (18:16)
[2019-03-03] MEDS ORDERED: BISMUTH SUBSALICYLATE 524 MG/30 ML UD PO PRN (18:16)
[2019-03-03] MEDS ORDERED: MAG HYDROX/AL HYDROX/SIMETH 30 ML UNIT-DOSE CUP PO PRN (18:16)
[2019-03-03] MEDS ORDERED: MAGNESIUM HYDROX 2400MG/30ML ORAL SUSPENSION 30 ML CUP PO PRN (18:16)
[2019-03-03] MEDS ORDERED: MAGNESIUM CITRATE 300 ML BOTTLE PO PRN (18:16)
[2019-03-03] MEDS ORDERED: IBUPROFEN 400 MG TABLET (FP) PO PRN (18:16)
[2019-03-03] MEDS ORDERED: guaiFENesin 200 MG/10 ML 10 ML UNIT-DOSE CUPS PO PRN (18:16)
[2019-03-03] MEDS ORDERED: cloNIDine HCL 0.1 MG TABLET PO PRN (18:34)
[2019-03-03] MEDS ORDERED: NALOXONE HCL 0.4 MG/ML VIAL IVPUSH PRN (18:34)
[2019-03-03] MEDS: METHOCARBAMOL 500 MG TABLET PO PRN (18:59)
[2019-03-03] MEDS ORDERED: METHADONE HCL 10 MG TABLET (FOR DETOX USE ONLY) PO ONE ×2 (19:00→23:00)
[2019-03-03] MEDS: THIAMINE HCL 100 MG TABLET (FP) PO SCH (22:16)
[2019-03-03] MEDS: MELATONIN 5 MG TABLETS PO PRN (22:17)
[2019-03-03] MEDS: ACETAMINOPHEN 325 MG TABLET (FP) PO PRN (22:19)
[2019-03-04] MEDS: METHOCARBAMOL 500 MG TABLET PO PRN ×3 (02:39→22:30)
[2019-03-04] MEDS ORDERED: METHADONE HCL 10 MG TABLET (FOR DETOX USE ONLY) PO ONE (10:00)
[2019-03-04] MEDS: ONDANSETRON *ODT* 4 MG TABLET SL PRN (10:21)
[2019-03-04] MEDS: PRENATAL VITAMINS W/ FOLIC ACID TABLET (FP) PO SCH (10:41)
--- NOTE | 2019-03-04 10:49 | PN ---
BHS COWS - Scale Resting Pulse: 0= [place] 80 or Below Sweatin= Chills/Flushing Restless Observation: 1= Difficult to Sit Still Pupil Size: 0= Normal to Room Light Bone or Joint Aches: 1= Mild Discomfort Runny Nose/ Eye Tearin= Nasal Congestion GI Upset > 30mins: 3= Vomiting/Diarrhea Tremor Observation of Outstretched Hands: 1= Tremor [place], Not Seen Yawning Observation: 1= 1-2x During Session Anxiety or Irritability: 1=Feels Anxious/Irritable Goose Flesh Skin: 3=Piloerection COWS Score: 13 BHS Progress Note (SOAP) Subjective: vomited x 1 after breakfast zofran 4 mg prn given encourage oral fluid Objective: 03/04/19 10:48 Vital Signs Temperature 97.6 F 03/04/19 09:08 Pulse Rate 76 03/04/19 09:08 Respiratory Rate 20 03/04/19 09:08 Blood Pressure 102/65 03/04/19 09:08 O2 Sat by Pulse Oximetry (%) 03/04/19 10:49 lab pending Assessment: 03/04/19 10:49 opiate withdrawal sx discontinue motrin begin zantac Plan: continue opiate detox
[2019-03-04 11:11] LABS: HEMATOCRIT 44.7 % (35.4-49); HEMOGLOBIN 15.2 GM/dL (11.7-16.9); MCH 29.5 pg (25.7-33.7); MEAN CELL VOLUME 86.8 fl (80-96); MEAN PLT VOLUME 9.4 fl (7.5-11.1); PLATELET COUNT 184 K/MM3 (134-434); RBC 5.15 M/mm3 (4.00-5.60); RDW 13.4 % (11.9-15.9); WHITE BLOOD COUNT 7.4 K/mm3 (4.0-10.0)
[2019-03-04 11:16] LABS: ALBUMIN 4.3 g/dl (3.4-5.0); ALK PHOS 99 U/L (45-117); ANION GAP 5 MMOL/L (8-16); BILIRUBIN,TOTAL 0.4 mg/dL (0.2-1); BLOOD UREA NITROGEN 9 mg/dL (7-18); CALCIUM 9.6 mg/dL (8.5-10.1); CHLORIDE 101 mmol/L (98-107); CO2 31 mmol/L (21-32); CREATININE 0.9 mg/dL (0.55-1.3); GLUCOSE,RANDOM 87 mg/dL (74-106); POTASSIUM 4.6 mmol/L (3.5-5.1); SGOT/AST 19 U/L (15-37); SGPT/ALT 21 U/L (13-61); SODIUM 137 mmol/L (136-145); TOT PROT 7.8 g/dl (6.4-8.2)
--- NOTE | 2019-03-04 11:28 | CONSULT ---
[facility] Psychiatric Consult - Data Date of interview: 03/04/19 Admission source: [facility] Identifying data: Patient is a 23 year old single male, without children, domiciled and employed. This is one of multiple admissions for patient. Patient admitted to for opioid dependence. Substance Abuse History: - Smoking Cessation. Smoking history: Current every day smoker. Have you smoked in the past 12 months: Yes. Aproximately how many cigarettes per day: 6. Cigars Per Day: 0. Hx Chewing Tobacco Use: No. Initiated information on smoking cessation: Yes. 'Breaking Loose' booklet given : 03/03/19. - Substances abused. Heroin. Substance route: Inhalation. Frequency: Daily. Amount used: 5-6 BAGS. Age of first use: 23. Date of last use: 03/03/19. Other. Other (specify): OXYCODONE. Substance route: Oral. Frequency: Daily. Amount used: 3-4 30 MG PILLS DAILY. Age of first use: 21. Date of last use: 02/17/19 Medical History: Significant for Congenital Gall Bladder Problem, Chlamydia Psychiatric History: Patient's first encounter with a psychiatrist was in October 2017 after c/o anxiety and depression. He saw a psychiatrist at [facility] in [facility] and was prescribed Buspar 10mg BID and Zoloft 50mg PO daily. Patient denies current outpatient psychiatric care although he reports restarting the zoloft a few days ago due to having additional tablets at home. Patient denies h/o suicide attempt. At present he reports feeling sad and is experiencing difficulty sleeping. Physical/Sexual Abuse/Trauma History: denies. Mental Status Exam - Mental Status Exam Alert and Oriented to: Time, Place, Person Cognitive Function: Good Patient Appearance: Well Groomed Mood: Sad Affect: Appropriate Patient Behavior: Cooperative Speech Pattern: Appropriate Voice Loudness: Normal Thought Process: Goal Oriented Thought Disorder: Not Present Hallucinations: Denies Suicidal Ideation: Denies Homicidal Ideation: Denies Insight/Judgement: Poor Sleep: Poorly Appetite: Fair Muscle strength/Tone: Normal Gait/Station: Normal Psychiatric Findings - Problem List ([place] 1, 2,3) (1) Opioid dependence with withdrawal Current Visit: Yes Status: Acute (2) Substance-induced sleep disorder Current Visit: Yes Status: Acute (3) Substance induced mood disorder Current Visit: Yes Status: Acute - Initial Treatment Plan Initial Treatment Plan: Psychoeducation provided. Detoxification in progress. Will order Zoloft 50mg + Benadryl 50mg for insomnia. Benefits and side effects discussed. Verbal consent given.
[2019-03-04] MEDS: SERTRALINE HCL 50 MG TABLET (FP) PO SCH (13:39)
[2019-03-04] MEDS: RANITIDINE HCL 150 MG TABLET (FP) PO SCH ×2 (13:39→22:30)
--- NOTE | 2019-03-04 13:42 | EKG ---
Test Reason : Blood Pressure : / mmHG Vent. Rate : 070 BPM Atrial Rate : 070 BPM P-R Int : 130 ms QRS Dur : 082 ms QT Int : 380 ms P-R-T Axes : 030 070 046 degrees QTc Int : 410 ms NORMAL SINUS RHYTHM NORMAL ECG WHEN COMPARED WITH ECG OF 10-MAR-2018 22:00, PREMATURE ATRIAL COMPLEXES ARE NO LONGER PRESENT Confirmed by PUJA BELL MD ([id number]) on 03/04/2019 1:42:42 PM Referred By: Confirmed By:PUJA BELL MD
[2019-03-04] MEDS ORDERED: diphenhydrAMINE HCL 50 MG CAPSULE PO PRN (22:00)
[2019-03-04] MEDS: THIAMINE HCL 100 MG TABLET (FP) PO SCH (22:30)
[2019-03-04] MEDS: MELATONIN 5 MG TABLETS PO PRN (22:32)
[2019-03-05] MEDS: METHOCARBAMOL 500 MG TABLET PO PRN ×3 (06:06→22:25)
[2019-03-05] MEDS ORDERED: METHADONE HCL 10 MG TABLET (FOR DETOX USE ONLY) PO ONE (10:00)
[2019-03-05] MEDS: ONDANSETRON *ODT* 4 MG TABLET SL PRN (10:33)
[2019-03-05] MEDS: RANITIDINE HCL 150 MG TABLET (FP) PO SCH ×2 (10:33→22:25)
[2019-03-05] MEDS: PRENATAL VITAMINS W/ FOLIC ACID TABLET (FP) PO SCH (11:16)
[2019-03-05] MEDS: SERTRALINE HCL 50 MG TABLET (FP) PO SCH (11:16)
[2019-03-05] MEDS ORDERED: TRIMETHOBENZAMIDE HCL 200MG/2ML INJ IM PRN (12:34)
[2019-03-05] MEDS ORDERED: cloNIDine HCL 0.1 MG TABLET PO PRN (12:35)
--- NOTE | 2019-03-05 12:38 | PN ---
BHS COWS - Scale Resting Pulse: 1= [place] 81-100 Sweatin= Chills/Flushing Restless Observation: 1= Difficult to Sit Still Pupil Size: 1= Pupils >than Normal Bone or Joint Aches: 2= Severe Diffuse Aches Runny Nose/ Eye Tearin= Runny Nose/Eyes GI Upset > 30mins: 2= Nausea/Diarrhea Tremor Observation of Outstretched Hands: 2= Slight Tremor Visible Yawning Observation: 1= 1-2x During Session Anxiety or Irritability: 1=Feels Anxious/Irritable Goose Flesh Skin: 0=Smooth Skin COWS Score: 14 BHS Progress Note (SOAP) Subjective: pt with nausea and vomiting, still with opioid withdrawal Sx. O: Vital Signs - 24 hr 03/04/19 03/04/19 03/04/19 13:45 17:05 21:31 Temperature 98.1 F 98.5 F 98.5 F Pulse Rate 70 68 68 Respiratory 18 18 18 Rate Blood Pressure 110/69 100/61 112/69 03/05/19 03/05/19 03/05/19 00:30 03:30 06:30 Temperature 97.7 F Pulse Rate 62 Respiratory 18 18 18 Rate Blood Pressure 112/69 03/05/19 09:14 Temperature 97.2 F L Pulse Rate 64 Respiratory 18 Rate Blood Pressure 117/72 Laboratory Tests 03/04/19 03/04/19 03/04/19 07:00 07:00 07:00 WBC 7.4 RBC 5.15 Hgb 15.2 Hct 44.7 MCV 86.8 MCH 29.5 MCHC 34.0 RDW 13.4 Plt Count 184 MPV 9.4 Sodium 137 Potassium 4.6 Chloride 101 Carbon Dioxide 31 Anion Gap 5 L BUN 9 Creatinine 0.9 Creat Clearance w eGFR 103.67 Random Glucose 87 Calcium 9.6 Total Bilirubin 0.4 AST 19 ALT 21 Alkaline Phosphatase 99 Total Protein 7.8 Albumin 4.3 RPR Titer HIV 1&2 Antibody Screen Negative HIV P24 Antigen Negative 03/04/19 07:00 WBC RBC Hgb Hct MCV MCH MCHC RDW Plt Count MPV Sodium Potassium Chloride Carbon Dioxide Anion Gap BUN Creatinine Creat Clearance w eGFR Random Glucose Calcium Total Bilirubin AST ALT Alkaline Phosphatase Total Protein Albumin RPR Titer Nonreactive HIV 1&2 Antibody Screen HIV P24 Antigen a/p: continue methadone detox protocol clonidine/vistaril prn tigan IM prn d/w pt long MAT with methaodne or suboxone
[2019-03-05] MEDS: hydrOXYzine PAMOATE 50 MG CAPSULE (FP) PO PRN (14:36)
[2019-03-05] MEDS: ACETAMINOPHEN 325 MG TABLET (FP) PO PRN (19:56)
[2019-03-05] MEDS: THIAMINE HCL 100 MG TABLET (FP) PO SCH (22:25)
[2019-03-05] MEDS: MELATONIN 5 MG TABLETS PO PRN (22:26)
[2019-03-06] MEDS: hydrOXYzine PAMOATE 50 MG CAPSULE (FP) PO PRN ×2 (04:12→13:14)
[2019-03-06] MEDS ORDERED: METHADONE HCL 10 MG TABLET (FOR DETOX USE ONLY) PO ONE (10:00)
[2019-03-06] MEDS: RANITIDINE HCL 150 MG TABLET (FP) PO SCH ×2 (10:38→22:19)
[2019-03-06] MEDS: PRENATAL VITAMINS W/ FOLIC ACID TABLET (FP) PO SCH (10:38)
[2019-03-06] MEDS: SERTRALINE HCL 50 MG TABLET (FP) PO SCH (10:38)
--- NOTE | 2019-03-06 11:14 | PN ---
BHS COWS - Scale Resting Pulse: 0= [place] 80 or Below Sweatin= Chills/Flushing Restless Observation: 3= Extraneous Movement Pupil Size: 0= Normal to Room Light Bone or Joint Aches: 1= Mild Discomfort Runny Nose/ Eye Tearin= None GI Upset > 30mins: 2= Nausea/Diarrhea Tremor Observation of Outstretched Hands: 1= Tremor [place], Not Seen Yawning Observation: 0= None Anxiety or Irritability: 1=Feels Anxious/Irritable Goose Flesh Skin: 0=Smooth Skin COWS Score: 9 BHS Progress Note (SOAP) Subjective: PT C/O ANXIETY,NAUSEA AND INTERMITTENT SLEEP. Objective: 03/06/19 11:10 Vital Signs 03/06/19 03/06/19 03/06/19 03:30 06:11 06:27 Temperature 97.7 F Pulse Rate 52 L Respiratory 18 18 18 Rate Blood Pressure 107/68 03/06/19 09:37 Temperature 97.4 F L Pulse Rate 71 Respiratory 18 Rate Blood Pressure 127/71 Laboratory Tests 03/04/19 03/04/19 03/04/19 07:00 07:00 07:00 WBC 7.4 RBC 5.15 Hgb 15.2 Hct 44.7 MCV 86.8 MCH 29.5 MCHC 34.0 RDW 13.4 Plt Count 184 MPV 9.4 Sodium 137 Potassium 4.6 Chloride 101 Carbon Dioxide 31 Anion Gap 5 L BUN 9 Creatinine 0.9 Creat Clearance w eGFR 103.67 Random Glucose 87 Calcium 9.6 Total Bilirubin 0.4 AST 19 ALT 21 Alkaline Phosphatase 99 Total Protein 7.8 Albumin 4.3 RPR Titer HIV 1&2 Antibody Screen Negative HIV P24 Antigen Negative 03/04/19 07:00 WBC RBC Hgb Hct MCV MCH MCHC RDW Plt Count MPV Sodium Potassium Chloride Carbon Dioxide Anion Gap BUN Creatinine Creat Clearance w eGFR Random Glucose Calcium Total Bilirubin AST ALT Alkaline Phosphatase Total Protein Albumin RPR Titer Nonreactive HIV 1&2 Antibody Screen HIV P24 Antigen Assessment: 03/06/19 11:11 WITHDRAWAL SX Plan: CONTINUE DETOX ZOFRAN SL PRN DIRECTED INCREASE PO FLUIDS.
[2019-03-06] MEDS: ONDANSETRON *ODT* 4 MG TABLET SL PRN (11:20)
[2019-03-06] MEDS: METHOCARBAMOL 500 MG TABLET PO PRN ×2 (13:14→22:20)
[2019-03-06] MEDS: ACETAMINOPHEN 325 MG TABLET (FP) PO PRN (18:14)
[2019-03-06] MEDS: MELATONIN 5 MG TABLETS PO PRN (22:19)
[2019-03-06] MEDS: THIAMINE HCL 100 MG TABLET (FP) PO SCH (22:19)
[2019-03-07] MEDS: hydrOXYzine PAMOATE 50 MG CAPSULE (FP) PO PRN (00:55)
[2019-03-07] MEDS ORDERED: METHADONE HCL 5 MG TABLET (FOR DETOX USE ONLY) PO ONE (06:00)
[2019-03-07 09:16] VITALS: BP 106/66; PULSE 78; TEMP 97.1
--- NOTE | 2019-03-07 15:28 | DS ---
[facility] Detox Discharge Summary Admission Date: 03/03/19 Discharge Date: 03/07/19 - History Present History: Opioid Dependence Additional Comments: 23 years old male admitted on 03/03/19 for opiate withdrawal stabilization completed detox regimen aftercare medication assisted maintenance treatment program Pertinent Past History: medication list and lab report to follow up appointment - Physical Exam Results Vital Signs: Vital Signs Temperature 97.1 F L 03/07/19 09:15 Pulse Rate 78 03/07/19 09:15 Respiratory Rate 18 03/07/19 09:15 Blood Pressure 106/66 03/07/19 09:15 O2 Sat by Pulse Oximetry (%) Pertinent Admission Physical Exam Findings: opiate withdrawal sx Laboratory Last Values WBC 7.4 K/mm3 (4.0-10.0) 03/04/19 07:00 RBC 5.15 M/mm3 (4.00-5.60) 03/04/19 07:00 Hgb 15.2 GM/dL (11.7-16.9) 03/04/19 07:00 Hct 44.7 % (35.4-49) 03/04/19 07:00 MCV 86.8 fl (80-96) 03/04/19 07:00 MCH 29.5 pg (25.7-33.7) 03/04/19 07:00 MCHC 34.0 g/dl (32.0-35.9) 03/04/19 07:00 RDW 13.4 % (11.9-15.9) 03/04/19 07:00 Plt Count 184 K/MM3 (134-434) 03/04/19 07:00 MPV 9.4 fl (7.5-11.1) 03/04/19 07:00 Sodium 137 mmol/L (136-145) 03/04/19 07:00 Potassium 4.6 mmol/L (3.5-5.1) 03/04/19 07:00 Chloride 101 mmol/L (98-107) 03/04/19 07:00 Carbon Dioxide 31 mmol/L (21-32) 03/04/19 07:00 Anion Gap 5 MMOL/L (8-16) L 03/04/19 07:00 BUN 9 mg/dL (7-18) 03/04/19 07:00 Creatinine 0.9 mg/dL (0.55-1.3) 03/04/19 07:00 Creat Clearance w eGFR 103.67 (>60) 03/04/19 07:00 Random Glucose 87 mg/dL (74-106) 03/04/19 07:00 Calcium 9.6 mg/dL (8.5-10.1) 03/04/19 07:00 Total Bilirubin 0.4 mg/dL (0.2-1) 03/04/19 07:00 AST 19 U/L (15-37) 03/04/19 07:00 ALT 21 U/L (13-61) 03/04/19 07:00 Alkaline Phosphatase 99 U/L (45-117) 03/04/19 07:00 Total Protein 7.8 g/dl (6.4-8.2) 03/04/19 07:00 Albumin 4.3 g/dl (3.4-5.0) 03/04/19 07:00 RPR Titer Nonreactive (NONREACTIVE) 03/04/19 07:00 HIV 1&2 Antibody Screen Negative 03/04/19 07:00 HIV P24 Antigen Negative 03/04/19 07:00 lab noted - Treatment Hospital Course: Detox Protocol Followed, Detoxed Safely, Responded well, Discharged Condition Good, Rehab Referral Accepted Patient has Accepted a Rehab Referral to: medication assisted maintenance treatment program - Medication Discharge Medications: Ambulatory Orders Buspirone HCl [Buspar -] 10 mg PO BID #60 tablet 03/11/18 Sertraline HCl [Zoloft -] 50 mg PO DAILY #30 tablet 03/11/18 - Diagnosis (1) Opioid dependence with withdrawal Status: Acute (2) Substance induced mood disorder Status: Suspected (3) Nicotine dependence Status: Acute Qualifiers: Nicotine product type: cigarettes Substance use status: in withdrawal Qualified Code(s): F17.213 - Nicotine dependence, cigarettes, with withdrawal - AMA Did Patient Leave Against Medical Advice: No
== END 2019-03-07 09:49 | disposition home or self-care (01) | DRG 773 ==
LOC: YASAS 15:59 → Y3N 18:27
PROVIDERS: ADMIT Surgery; ATTEND Surgery
PROC: HZ2ZZZZ Detoxification Services for Substance Abuse Treatment (ICD-10-PCS; principal; 2019-03-03)
DX: F11.23 Opioid dependence with withdrawal (principal); F12.20 Cannabis dependence, uncomplicated; F17.213 Nicotine dependence, cigarettes, with withdrawal; F19.24 Other psychoactive substance dependence with psychoactive substance-induced mood disorder; F19.282 Other psychoactive substance dependence with psychoactive substance-induced sleep disorder; Z86.19 Personal history of other infectious and parasitic diseases
CPT/HCPCS: 36415; 80053; 85027; 86593; 87389; 93005; 93010; J0735; Q0162

== ENCOUNTER 2019-05-01 13:42 | Inpatient (IN) | payer OTHER ==
[2019-05-01 14:23] VITALS: BMI 27.7
--- NOTE | 2019-05-01 15:27 | HP ---
COWS - Scale Resting Pulse: 0= [place] 80 or Below Sweatin= Chills/Flushing Restless Observation: 1= Difficult to Sit Still Pupil Size: 0= Normal to Room Light Bone or Joint Aches: 2= Severe Diffuse Aches Runny Nose/ Eye Tearin= Runny Nose/Eyes GI Upset > 30mins: 2= Nausea/Diarrhea Tremor Observation: 2= Slight Tremor Visible Yawning Observation: 1= 1-2x During Session Anxiety or Irritability: 1=Feels Anxious/Irritable Goose Flesh Skin: 0=Smooth Skin COWS Score: 12 CIWA Score - Admission Criteria OASAS Guidelines: Admission for Medically Managed Detox: Requires at least one of the followin. CIWA greater than 12 2. Seizures within the past 24 hours 3. Delirium tremens within the past 24 hours 4. Hallucinations within the past 24 hours 5. Acute intervention needed for co occurring medical disorder 6. Acute intervention needed for co occurring psychiatric disorder 7. Severe withdrawal that cannot be handled at a lower level of care (continued vomiting, continued diarrhea, abnormal vital signs) requiring intravenous medication and/or fluids 8. Admission ROS [facility] Chief Complaint: I need detox Allergies/Adverse Reactions: Allergies Allergy/AdvReac Type Severity Reaction Status Date / Time No Known Allergies Allergy Verified 05/01/19 14:17 History of Present Illness: 24 year old male with illicit drug use presents for detox form heroin and oxycodone. Resident completed detox in December of this year. He is currently receiving PCN for infected for which he is waiting for a root canal. Exam Limitations: No Limitations - Ebola screening Have you traveled outside of the country in the last 21 days: No Have you had contact with anyone from an Ebola affected area: No Have you been sick,other than usual withdrawal symptoms: No Do you have a fever: No - Review of Systems Constitutional: Chills, Loss of Appetite, Changes in sleep EENT: reports: Nose Congestion, Dental Problems Respiratory: reports: No Symptoms reported Cardiac: reports: No Symptoms Reported GI: reports: Nausea, Vomiting, Abdominal cramping : reports: No Symptoms Reported Musculoskeletal: reports: Back Pain, Joint Pain, Muscle Weakness Integumentary: reports: Flushing Neuro: reports: Headache, Tremors Endocrine: reports: No Symptoms Reported Hematology: reports: No Symptoms Reported Psychiatric: reports: Anxious, Depressed Other Systems: Reviewed and Negative Patient History - Patient Medical History Hx Anemia: No Hx Asthma: No Hx Chronic Obstructive Pulmonary Disease (COPD): No Hx Cancer: No Hx Cardiac Disorders: No Hx Congestive Heart Failure: No Hx Hypertension: No Hx Hypercholesterolemia: No Hx Pacemaker: No HX Cerebrovascular Accident: No Hx Seizures: No Hx Dementia: No Hx Diabetes: No Hx Gastrointestinal Disorders: No Hx Liver Disease: No Hx Genitourinary Disorders: No Hx Sexually Transmitted Disorders: Yes (Chlamydia ) Hx Renal Disease (ESRD): No Hx Thyroid Disease: No Hx Human Immunodeficiency Virus (HIV): No (January 2018) Hx Hepatitis C: No Hx Depression: Yes Hx Suicide Attempt: No Hx Bipolar Disorder: No Hx Schizophrenia: No - Patient Surgical History Past Surgical History: Yes Hx Neurologic Surgery: No Hx Cataract Extraction: No Hx Cardiac Surgery: No Hx Lung Surgery: No Hx Breast Surgery: No Hx Breast Biopsy: No Hx Abdominal Surgery: No Hx Appendectomy: No Hx Cholecystectomy: Yes (Congenital Gall Bladder Problem) Hx Genitourinary Surgery: No Hx Section: No Hx Orthopedic Surgery: No Anesthesia Reaction: No - PPD History Previous Implant?: Yes Documented Results: Negative w/proof Implanted On Prior R Admission?: Yes Date: 03/05/19 Results: 0 mm PPD to be Administered?: No - Smoking Cessation Smoking history: Current every day smoker Have you smoked in the past 12 months: Yes Aproximately how many cigarettes per day: 7 Cigars Per Day: 0 Hx Chewing Tobacco Use: No Initiated information on smoking cessation: Yes 'Breaking Loose' booklet given: 05/01/19 - Substances abused Heroin Substance route: Inhalation Frequency: Daily Amount used: 5-6 BAGS Age of first use: 23 Date of last use: 05/01/19 Other Other (specify): OXYCODONE Substance route: Oral Frequency: Daily Amount used: 3-4 30 MG PILLS DAILY Age of first use: 21 Date of last use: 04/30/19 Family Disease History - Family Disease History Family Disease History: Diabetes: Father (), Brother, Heart Disease: Father, Other: Father Admission Physical Exam BHS - Vital Signs Vital Signs: Vital Signs - 24 hr 05/01/19 14:19 Temperature 98.4 F Pulse Rate 76 Respiratory 18 Rate Blood Pressure 119/77 - Physical General Appearance: Yes: No Apparent Distress HEENTM: Yes: EOMI, Hearing grossly Normal, Normal ENT Inspection, Normocephalic , Normal Voice, TWILA, Pharynx Normal, Tm's normal Respiratory: Yes: Chest Non-Tender, Lungs Clear, Normal Breath Sounds, No Respiratory Distress, No Accessory Muscle Use Neck: Yes: No masses,lesions,Nodules, Supple Breast: Yes: Breast Exam Deferred Cardiology: Yes: Regular Rhythm, Regular Rate, S1, S2 Abdominal: Yes: Normal Bowel Sounds, Non Tender, Soft Genitourinary: Yes: Within Normal Limits Back: Yes: Normal Inspection Musculoskeletal: Yes: full range of Motion, Gait Steady, Pelvis Stable, Back pain Extremities: Yes: Normal Capillary Refill, Tremors, Coldness Neurological: Yes: track walker II-XII NML intact, Fully Oriented, Alert, Normal Mood/ Affect, Normal Response Integumentary: Yes: Normal Color, Clammy Lymphatic: Yes: Within Normal Limits - Diagnostic (1) Tooth infection Current Visit: Yes Status: Acute (2) Nicotine dependence Current Visit: Yes Status: Acute Qualifiers: Nicotine product type: cigarettes Substance use status: uncomplicated Qualified Code(s): F17.210 - Nicotine dependence, cigarettes, uncomplicated (3) Opioid dependence with withdrawal Current Visit: No Status: Acute (4) RAMÍREZ (generalized anxiety disorder) Current Visit: No Status: Acute Cleared for Admission [facility] - Detox or Rehab [facility] Level of Care: Medically Managed Detox Regimen/Protocol: Methadone Breathalyzer - Breathalyzer Breathalyzer: 0 Urine Drug Screen - Test Device Lot number: [id number] Expiration date: 12/31/20 - Control Is test valid?: Yes - Results Drug screen NEGATIVE: No Urine drug screen results: THC-Marijuana, ERASTO-Cocaine, FEN-Fentanyl, MOP-Opiates , OXY-Oxycodone, BZO-Benzodiazepines Inpatient Rehab Admission - Rehab Decision to Admit Inpatient rehab admission?: No
[2019-05-01] MEDS ORDERED: MELATONIN 5 MG TABLETS PO PRN (15:30)
[2019-05-01] MEDS ORDERED: MAGNESIUM HYDROX 2400MG/30ML ORAL SUSPENSION 30 ML CUP PO PRN (15:30)
[2019-05-01] MEDS ORDERED: NALOXONE HCL 0.4 MG/ML VIAL IVPUSH PRN (15:30)
[2019-05-01] MEDS ORDERED: MAG HYDROX/AL HYDROX/SIMETH 30 ML UNIT-DOSE CUP PO PRN (15:30)
[2019-05-01] MEDS ORDERED: METHADONE HCL 10 MG TABLET (FOR DETOX USE ONLY) PO ONE ×2 (15:30→23:00)
[2019-05-01] MEDS ORDERED: ACETAMINOPHEN 325 MG TABLET (FP) PO PRN ×2 (15:30)
[2019-05-01] MEDS ORDERED: MAGNESIUM CITRATE 300 ML BOTTLE PO PRN (15:30)
[2019-05-01] MEDS ORDERED: NICOTINE POLACRILEX 2 MG GUM BUC PRN (15:30)
[2019-05-01] MEDS ORDERED: cloNIDine HCL 0.1 MG TABLET PO PRN (15:30)
[2019-05-01] MEDS ORDERED: IBUPROFEN 400 MG TABLET (FP) PO PRN (15:30)
[2019-05-01] MEDS ORDERED: BISMUTH SUBSALICYLATE 524 MG/30 ML UD PO PRN (15:30)
[2019-05-01] MEDS ORDERED: MENTHOL/PHENOL 1 EACH UD MM PRN (15:30)
[2019-05-01] MEDS ORDERED: THIAMINE HCL 100 MG TABLET (FP) PO SCH (22:00)
[2019-05-01] MEDS: PENICILLIN V POTASSIUM 500 MG TABLET PO SCH (23:06)
[2019-05-01] MEDS: METHOCARBAMOL 500 MG TABLET PO PRN (23:07)
[2019-05-02] MEDS: PENICILLIN V POTASSIUM 500 MG TABLET PO SCH ×4 (01:39→17:14)
[2019-05-02] MEDS: clonazePAM 0.5 MG TABLET PO PRN ×3 (05:32→17:14)
[2019-05-02 09:40] LABS: ALBUMIN 3.8 g/dl (3.4-5.0); BILIRUBIN,TOTAL 0.4 mg/dL (0.2-1); BLOOD UREA NITROGEN 11.1 mg/dL (7-18); CREATININE 0.9 mg/dL (0.55-1.3); POTASSIUM 4.2 mmol/L (3.5-5.1); TOT PROT 6.8 g/dl (6.4-8.2)
[2019-05-02 09:47] LABS: HEMOGLOBIN 13.7 GM/dL (11.7-16.9); MCH 28.9 pg (25.7-33.7); MCHC 33.3 g/dl (32.0-35.9); MEAN CELL VOLUME 86.8 fl (80-96); MEAN PLT VOLUME 9.3 fl (7.5-11.1); RBC 4.72 M/mm3 (4.00-5.60); RDW 13.7 % (11.9-15.9); WHITE BLOOD COUNT 6.6 K/mm3 (4.0-10.0)
[2019-05-02] MEDS ORDERED: METHADONE HCL 5 MG TABLET (FOR DETOX USE ONLY) PO ONE (10:00)
[2019-05-02] MEDS ORDERED: PRENATAL VITAMINS W/ FOLIC ACID TABLET (FP) PO SCH (10:00)
[2019-05-02 10:13] LABS: PLATELET COUNT 188 K/MM3 (134-434)
[2019-05-02] MEDS: METHOCARBAMOL 500 MG TABLET PO PRN ×2 (12:10→17:13)
--- NOTE | 2019-05-02 15:31 | CONSULT ---
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 Smokes 7 cigaretes daily. Psychiatric History: Reports that his first psychiatric contact was in October 2017 when he saw a psychiatrist at [facility] in [place]. He was diagnosed with anxiety and prescribed Buspar. Reports that after a few months he stopped going to the clinic and taking medication. Denies previous psychiatric hospitalization or suicidal attempt. At present, reports feeling anxious and sleeping poorly. Requests to resume Buspar Physical/Sexual Abuse/Trauma History: Denies history of emotional, physical or sexual abuse as well as DV relationship. No service Additional Comment: Reports history of 3-4 previous misdemeanor arrests on charges of marijuana possession Mental Status Exam - Mental Status Exam Alert and Oriented to: Time, Person Cognitive Function: Fair Patient Appearance: Well Groomed Mood: Depressed, Anxious Patient Behavior: Cooperative Speech Pattern: Clear Voice Loudness: Normal Thought Process: Intact, Goal Oriented Thought Disorder: Not Present Hallucinations: Denies Suicidal Ideation: Denies Homicidal Ideation: Denies Insight/Judgement: Poor Sleep: Poorly Appetite: Fair Muscle strength/Tone: Normal Gait/Station: Normal Psychiatric Findings - Problem List (Adams 1, 2,3) (1) Anxiety disorder Current Visit: Yes Status: Chronic (2) Substance-induced anxiety disorder Current Visit: Yes Status: Acute (3) Substance-induced sleep disorder Current Visit: Yes Status: Acute (4) Opioid dependence with withdrawal Current Visit: No Status: Acute (5) Nicotine dependence Current Visit: Yes Status: Chronic Qualifiers: Nicotine product type: cigarettes Substance use status: uncomplicated Qualified Code(s): F17.210 - Nicotine dependence, cigarettes, uncomplicated - Initial Treatment Plan Initial Treatment Plan: 1) Start Buspar 10 mg po BID. 2) Continue inpatient detoxification
--- NOTE | 2019-05-02 15:43 | PN ---
BHS COWS - Scale Resting Pulse: 1= [place] 81-100 Sweatin= Chills/Flushing Restless Observation: 3= Extraneous Movement Pupil Size: 0= Normal to Room Light Bone or Joint Aches: 2= Severe Diffuse Aches Runny Nose/ Eye Tearin= Runny Nose/Eyes GI Upset > 30mins: 1= Stomach Cramp Tremor Observation of Outstretched Hands: 2= Slight Tremor Visible Yawning Observation: 0= None Anxiety or Irritability: 2=Irritable/Anxious Goose Flesh Skin: 0=Smooth Skin COWS Score: 14 BHS Progress Note (SOAP) Subjective: Stomachache, back pain, perfuse sweating Objective: 05/02/19 15:41 Last Vital Signs Temp Pulse Resp BP Pulse Ox 97.9 F 84 18 115/86 05/02/19 14:34 05/02/19 14:34 05/02/19 14:34 05/02/19 14:34 Laboratory Tests 05/02/19 05/02/19 05/02/19 07:30 07:30 07:30 WBC 6.6 RBC 4.72 Hgb 13.7 Hct 41.0 MCV 86.8 MCH 28.9 MCHC 33.3 RDW 13.7 Plt Count 188 MPV 9.3 Sodium 139 Potassium 4.2 Chloride 104 Carbon Dioxide 31 Anion Gap 4 L BUN 11.1 Creatinine 0.9 Est GFR (CKD-EPI)AfAm 137.10 Est GFR (CKD-EPI)NonAf 118.29 Random Glucose 107 H Calcium 9.0 Total Bilirubin 0.4 AST 19 ALT 34 Alkaline Phosphatase 103 Total Protein 6.8 Albumin 3.8 RPR Titer Nonreactive Labs reviewed Assessment: 05/02/19 15:42 Withdrawal symptoms Plan: Continue detox Encouraged PO water intake
[2019-05-02 17:00] VITALS: BP 109/65; PULSE 77; TEMP 98.8
--- NOTE | 2019-05-02 19:20 | HP ---
COWS - Scale Resting Pulse: 0= [place] 80 or Below Sweatin= Chills/Flushing Restless Observation: 1= Difficult to Sit Still Pupil Size: 0= Normal to Room Light Bone or Joint Aches: 2= Severe Diffuse Aches Runny Nose/ Eye Tearin= Runny Nose/Eyes GI Upset > 30mins: 2= Nausea/Diarrhea Tremor Observation: 2= Slight Tremor Visible Yawning Observation: 1= 1-2x During Session Anxiety or Irritability: 1=Feels Anxious/Irritable Goose Flesh Skin: 0=Smooth Skin COWS Score: 12 CIWA Score - Admission Criteria OASAS Guidelines: Admission for Medically Managed Detox: Requires at least one of the followin. CIWA greater than 12 2. Seizures within the past 24 hours 3. Delirium tremens within the past 24 hours 4. Hallucinations within the past 24 hours 5. Acute intervention needed for co occurring medical disorder 6. Acute intervention needed for co occurring psychiatric disorder 7. Severe withdrawal that cannot be handled at a lower level of care (continued vomiting, continued diarrhea, abnormal vital signs) requiring intravenous medication and/or fluids 8. Admission ROS [facility] Allergies/Adverse Reactions: Allergies Allergy/AdvReac Type Severity Reaction Status Date / Time No Known Allergies Allergy Verified 05/01/19 14:17 - Ebola screening Have you traveled outside of the country in the last 21 days: No Have you had contact with anyone from an Ebola affected area: No Have you been sick,other than usual withdrawal symptoms: No Do you have a fever: No Patient History - Patient Medical History Hx Anemia: No Hx Asthma: No Hx Chronic Obstructive Pulmonary Disease (COPD): No Hx Cancer: No Hx Cardiac Disorders: No Hx Congestive Heart Failure: No Hx Hypertension: No Hx Hypercholesterolemia: No Hx Pacemaker: No HX Cerebrovascular Accident: No Hx Seizures: No Hx Dementia: No Hx Diabetes: No Hx Gastrointestinal Disorders: No Hx Liver Disease: No Hx Genitourinary Disorders: No Hx Sexually Transmitted Disorders: Yes (Chlamydia ) Hx Renal Disease (ESRD): No Hx Thyroid Disease: No Hx Human Immunodeficiency Virus (HIV): No (January 2018) Hx Hepatitis C: No Hx Depression: Yes Hx Suicide Attempt: No Hx Bipolar Disorder: No Hx Schizophrenia: No - Patient Surgical History Past Surgical History: Yes Hx Neurologic Surgery: No Hx Cataract Extraction: No Hx Cardiac Surgery: No Hx Lung Surgery: No Hx Breast Surgery: No Hx Breast Biopsy: No Hx Abdominal Surgery: No Hx Appendectomy: No Hx Cholecystectomy: Yes (Congenital Gall Bladder Problem) Hx Genitourinary Surgery: No Hx Section: No Hx Orthopedic Surgery: No Anesthesia Reaction: No - PPD History Previous Implant?: Yes Documented Results: Negative w/proof Implanted On Prior [facility] Admission?: Yes Date: 03/05/19 Results: 0 mm - Smoking Cessation Smoking history: Current every day smoker Have you smoked in the past 12 months: Yes Aproximately how many cigarettes per day: 7 Cigars Per Day: 0 Hx Chewing Tobacco Use: No Initiated information on smoking cessation: Yes - Substances abused Heroin Substance route: Inhalation Frequency: Daily Amount used: 5-6 BAGS Age of first use: 23 Date of last use: 05/01/19 Other Other (specify): OXYCODONE Substance route: Oral Frequency: Daily Amount used: 3-4 30 MG PILLS DAILY Age of first use: 21 Date of last use: 04/30/19 Family Disease History - Family Disease History Family Disease History: Diabetes: Father (), Brother, Heart Disease: Father, Other: Father Admission Physical Exam BHS - Vital Signs Vital Signs: Vital Signs - 24 hr 05/01/19 05/02/19 05/02/19 23:23 00:30 03:30 Temperature 97.9 F Pulse Rate 66 Respiratory 16 18 18 Rate Blood Pressure 116/71 05/02/19 05/02/19 05/02/19 06:00 09:21 14:22 Temperature 97.7 F 98.2 F 98.2 F Pulse Rate 50 L 63 68 Respiratory 18 18 18 Rate Blood Pressure 104/63 114/60 114/66 05/02/19 05/02/19 14:34 17:00 Temperature 97.9 F 98.8 F Pulse Rate 84 77 Respiratory 18 16 Rate Blood Pressure 115/86 109/65 Breathalyzer - Breathalyzer Breathalyzer: 0 Urine Drug Screen - Test Device Lot number: [id number] Expiration date: 12/31/20 - Control Is test valid?: Yes - Results Drug screen NEGATIVE: No Urine drug screen results: THC-Marijuana, ERASTO-Cocaine, FEN-Fentanyl, MOP-Opiates , OXY-Oxycodone, BZO-Benzodiazepines
--- NOTE | 2019-05-02 19:21 | DS ---
[facility] Detox Discharge Summary Admission Date: 05/01/19 Discharge Date: 05/02/19 - History Additional Comments: Patient left against medical advice. Patient could not wait to be seen by a provider. As per the nurse, patient states that he had to go to work tomorrow Pertinent Past History: Anxiety, insomnia, nicotine dependence, Opioid dependence, proteinuria, cannabis dependence, tooth infection - Physical Exam Results Vital Signs: Vital Signs Temperature 98.8 F 05/02/19 17:00 Pulse Rate 77 05/02/19 17:00 Respiratory Rate 16 05/02/19 17:00 Blood Pressure 109/65 05/02/19 17:00 O2 Sat by Pulse Oximetry (%) Laboratory Last Values WBC 6.6 K/mm3 (4.0-10.0) 05/02/19 07:30 RBC 4.72 M/mm3 (4.00-5.60) 05/02/19 07:30 Hgb 13.7 GM/dL (11.7-16.9) 05/02/19 07:30 Hct 41.0 % (35.4-49) 05/02/19 07:30 MCV 86.8 fl (80-96) 05/02/19 07:30 MCH 28.9 pg (25.7-33.7) 05/02/19 07:30 MCHC 33.3 g/dl (32.0-35.9) 05/02/19 07:30 RDW 13.7 % (11.9-15.9) 05/02/19 07:30 Plt Count 188 K/MM3 (134-434) 05/02/19 07:30 MPV 9.3 fl (7.5-11.1) 05/02/19 07:30 Sodium 139 mmol/L (136-145) 05/02/19 07:30 Potassium 4.2 mmol/L (3.5-5.1) 05/02/19 07:30 Chloride 104 mmol/L (98-107) 05/02/19 07:30 Carbon Dioxide 31 mmol/L (21-32) 05/02/19 07:30 Anion Gap 4 MMOL/L (8-16) L 05/02/19 07:30 BUN 11.1 mg/dL (7-18) 05/02/19 07:30 Creatinine 0.9 mg/dL (0.55-1.3) 05/02/19 07:30 Est GFR (CKD-EPI)AfAm 137.10 05/02/19 07:30 Est GFR (CKD-EPI)NonAf 118.29 05/02/19 07:30 Random Glucose 107 mg/dL (74-106) H 05/02/19 07:30 Calcium 9.0 mg/dL (8.5-10.1) 05/02/19 07:30 Total Bilirubin 0.4 mg/dL (0.2-1) 05/02/19 07:30 AST 19 U/L (15-37) 05/02/19 07:30 ALT 34 U/L (13-61) 05/02/19 07:30 Alkaline Phosphatase 103 U/L (45-117) 05/02/19 07:30 Total Protein 6.8 g/dl (6.4-8.2) 05/02/19 07:30 Albumin 3.8 g/dl (3.4-5.0) 05/02/19 07:30 RPR Titer Nonreactive (NONREACTIVE) 05/02/19 07:30 Pertinent Admission Physical Exam Findings: Withdrawal symptoms - Medication Discharge Medications: Ambulatory Orders Buspirone HCl [Buspar -] 10 mg PO BID #60 tablet 03/11/18 Penicillin V Potassium [Pen Vee K -] 500 mg PO Q6H 05/01/19 - Diagnosis (1) Tooth infection Current Visit: Yes Status: Acute (2) Anxiety disorder Current Visit: Yes Status: Chronic (3) Nicotine dependence Current Visit: Yes Status: Chronic Qualifiers: Nicotine product type: cigarettes Substance use status: uncomplicated Qualified Code(s): F17.210 - Nicotine dependence, cigarettes, uncomplicated (4) Insomnia Current Visit: No Status: Acute (5) Opioid dependence with withdrawal Current Visit: No Status: Acute (6) Proteinuria Current Visit: No Status: Acute (7) Anxiety and depression Current Visit: No Status: Chronic (8) Cannabis dependence Current Visit: No Status: Chronic - AMA Did Patient Leave Against Medical Advice: Yes
[2019-05-02] MEDS ORDERED: busPIRone HCL 10 MG TABLET (FP) PO SCH (22:00)
[2019-05-03] MEDS ORDERED: METHADONE HCL 10 MG TABLET (FOR DETOX USE ONLY) PO ONE (10:00)
[2019-05-04] MEDS ORDERED: METHADONE HCL 5 MG TABLET (FOR DETOX USE ONLY) PO ONE (06:00)
== END 2019-05-02 19:00 | disposition left against medical advice (07) | DRG 770 ==
LOC: YASAS 13:42 → Y6N 15:55
PROVIDERS: ADMIT Surgery; ATTEND Surgery
PROC: HZ2ZZZZ Detoxification Services for Substance Abuse Treatment (ICD-10-PCS; principal; 2019-05-01)
DX: F11.23 Opioid dependence with withdrawal (principal); F12.20 Cannabis dependence, uncomplicated; F17.210 Nicotine dependence, cigarettes, uncomplicated; F41.9 Anxiety disorder, unspecified; F32.9 Major depressive disorder, single episode, unspecified; F19.280 Other psychoactive substance dependence with psychoactive substance-induced anxiety disorder; F19.282 Other psychoactive substance dependence with psychoactive substance-induced sleep disorder; F41.1 Generalized anxiety disorder; G47.00 Insomnia, unspecified; R80.9 Proteinuria, unspecified; K04.7 Periapical abscess without sinus; Z87.438 Personal history of other diseases of male genital organs
CPT/HCPCS: 36415; 80053; 85027; 86593; J0735

== ENCOUNTER 2019-06-15 09:20 | Inpatient (IN) | payer OTHER | END 2019-06-17 12:04 | disposition home or self-care (01) | LOC: YASAS 09:20 → Y6N 10:37 ==

== ENCOUNTER 2019-12-31 16:09 | Inpatient (IN) | payer OTHER ==
--- NOTE | 2019-12-31 19:51 | BHS.RME ---
Substance Use & Tx History - Last Treatment Where was last treatment: Detox COWS - Scale Resting Pulse: 0= [place] 80 or Below Sweatin=Flushed/Facial Moisture Restless Observation: 0= Sits Still Pupil Size: 0= Normal to Room Light Bone or Joint Aches: 4=Acute Joint/Muscle Pain Runny Nose/ Eye Tearin= Nasal Congestion GI Upset > 30mins: 1= Stomach Cramp Tremor Observation: 4= Gross Tremor/Twitching Yawning Observation: 1= 1-2x During Session Anxiety or Irritability: 2=Irritable/Anxious Goose Flesh Skin: 0=Smooth Skin COWS Score: 15 CIWA Nausea/Vomitin-No Nausea/No Vomiting Muscle Tremors: 4-Moderate,w/Arms Extend Anxiety: 4-Mod. Anxious/Guarded Agitation: 4-Moderately Restless Paroxysmal Sweats: 2 Orientation: 0-Oriented Tacttile Disturbances: 0-None Auditory Disturbances: 0-None Visual Disturbances: 0-None Headache: 3-Moderate CIWA-Ar Total Score: 17
[2019-12-31 20:57] VITALS: BMI 28.6
--- NOTE | 2019-12-31 21:42 | HP ---
COWS - Scale Resting Pulse: 0= [place] 80 or Below Sweatin=Flushed/Facial Moisture Restless Observation: 1= Difficult to Sit Still Pupil Size: 2= Moderately Dilated (Pupils = 5 mm) Bone or Joint Aches: 2= Severe Diffuse Aches Runny Nose/ Eye Tearin= Nasal Congestion GI Upset > 30mins: 1= Stomach Cramp Tremor Observation: 4= Gross Tremor/Twitching Yawning Observation: 1= 1-2x During Session Anxiety or Irritability: 4=Extreme Anxiety Goose Flesh Skin: 0=Smooth Skin COWS Score: 18 CIWA Score Nausea/Vomitin-No Nausea/No Vomiting Muscle Tremors: 4-Moderate,w/Arms Extend Anxiety: 6 (Extremely anxious) Agitation: 4-Moderately Restless Paroxysmal Sweats: 3 (Increased facial moisture) Orientation: 0-Oriented Tacttile Disturbances: 0-None Auditory Disturbances: 0-None Visual Disturbances: 0-None Headache: 3-Moderate CIWA-Ar Total Score: 20 - Admission Criteria [facility]ASAS Guidelines: Admission for Medically Managed Detox: Requires at least one of the followin. CIWA greater than 12 2. Seizures within the past 24 hours 3. Delirium tremens within the past 24 hours 4. Hallucinations within the past 24 hours 5. Acute intervention needed for co occurring medical disorder 6. Acute intervention needed for co occurring psychiatric disorder 7. Severe withdrawal that cannot be handled at a lower level of care (continued vomiting, continued diarrhea, abnormal vital signs) requiring intravenous medication and/or fluids 8. Patient presents the following: CIWA greater than 12 Admission Criteria Met: Admission criteria met Admitting History and Physical - Smoking History Smoking history: Current every day smoker Have you smoked in the past 12 months: Yes Aproximately how many cigarettes per day: 7 - Alcohol/Substance Use Hx Alcohol Use: No Admission ROS BHS - HPI Chief Complaint: Patient states really wants to try and stop. Allergies/Adverse Reactions: Allergies Allergy/AdvReac Type Severity Reaction Status Date / Time No Known Allergies Allergy Verified 12/31/19 20:33 History of Present Illness: 24 yo presents w/ opioid and Xanax withdrawal seeking detox. Last two detox patient left after 1 and 2 days against medical advice. Patient states gets very anxious and needs to leave. Denies overdoses or seizures. States a few blackouts. PATIENT STATES WILL STAY AND COMPLETE TREATMENT. PATIENT SIGNED A CONTRACT. Xanax use since age 24 x 4 months. Using about 10-14 mg/day. Heroin use since age 23. Uses nasally. States uses 10 bags/day. Patient encouraged to consider a MAT program. PMHx: Toothache; EK03/03/19: WNL MHHx: Anxiety. Depression. Denies thoughts of harming self or others. Does not see a MH Provider in the community. SHx: Lives w/ girlfriend. Employed (States going back to work Tues or Wed.) Denies legal problems Search Terms: [place], 1995 Search Date: 12/31/2019 21:38:33 PM The Drug Utilization Report below displays all of the controlled substance prescriptions, if any, that your patient has filled in the last twelve months. The information displayed on this report is compiled from pharmacy submissions to the Department, and accurately reflects the information as submitted by the pharmacies. This report was requested by: Netta Singh | Reference #: [id number] There are no results for the search terms that you entered. Exam Limitations: No Limitations - Ebola screening Have you traveled outside of the country in the last 21 days: No Have you had contact with anyone from an Ebola affected area: No Have you been sick,other than usual withdrawal symptoms: No Do you have a fever: No - Review of Systems Constitutional: Changes in sleep (Difficulty falling and staying asleep. Has nightmares.) EENT: reports: Nose Congestion, Dental Problems (Tooth ache - (L) lower molar "3 ") Respiratory: reports: No Symptoms reported Cardiac: reports: No Symptoms Reported GI: reports: Abdominal cramping : reports: No Symptoms Reported Musculoskeletal: reports: Other (Generalized muscle and bone pain) Integumentary: reports: No Symptoms Reported Neuro: reports: Tremors Endocrine: reports: No Symptoms Reported Hematology: reports: No Symptoms Reported Psychiatric: reports: Judgement Intact, Orientated x3, Agitated, Anxious, Depressed (Denies thoughts of harming self or others) Patient History - Patient Medical History Hx Anemia: No Hx Asthma: No Hx Chronic Obstructive Pulmonary Disease (COPD): No Hx Cancer: No Hx Cardiac Disorders: No Hx Congestive Heart Failure: No Hx Hypertension: No Hx Hypercholesterolemia: No Hx Pacemaker: No HX Cerebrovascular Accident: No Hx Seizures: No Hx Dementia: No Hx Diabetes: No Hx Gastrointestinal Disorders: No Hx Liver Disease: No Hx Genitourinary Disorders: No Hx Sexually Transmitted Disorders: No Hx Renal Disease (ESRD): No Hx Thyroid Disease: No Hx Human Immunodeficiency Virus (HIV): No (January 2018) Hx Hepatitis C: No Hx Depression: Yes Hx Suicide Attempt: No Hx Bipolar Disorder: No Hx Schizophrenia: No - Patient Surgical History Past Surgical History: Yes Hx Neurologic Surgery: No Hx Cataract Extraction: No Hx Cardiac Surgery: No Hx Lung Surgery: No Hx Breast Surgery: No Hx Breast Biopsy: No Hx Abdominal Surgery: No Hx Appendectomy: No Hx Cholecystectomy: Yes (Congenital Gall Bladder Problem) Hx Genitourinary Surgery: No Hx Section: No Hx Orthopedic Surgery: No Anesthesia Reaction: No - PPD History Previous Implant?: Yes Documented Results: Negative w/proof Implanted On Prior [facility] Admission?: Yes Date: 03/05/19 Results: 0 mm PPD to be Administered?: No - Reproductive History Patient : No - Smoking Cessation Smoking history: Current every day smoker Have you smoked in the past 12 months: Yes Aproximately how many cigarettes per day: 10 Cigars Per Day: 0 Hx Chewing Tobacco Use: No Initiated information on smoking cessation: Yes 'Breaking Loose' booklet given: 12/31/19 - Substance & Tx. History Hx Alcohol Use: No Hx Substance Use: Yes Substance Use Type: Heroin, Opiates, Tranquilizers (Xanax) - Substances abused Heroin Substance route: Oral Frequency: Daily Amount used: 15 bags Age of first use: 23 Date of last use: 12/31/19 Alprazolam (Xanax) Substance route: Oral Frequency: Daily Amount used: 5 to 6 of the 2 mg/ to 12 mg. Age of first use: 24 Date of last use: 12/31/19 Admission Physical Exam BHS - Vital Signs Vital Signs: Vital Signs - 24 hr 12/31/19 20:43 Temperature 98.1 F Pulse Rate 80 Respiratory 20 Rate Blood Pressure 121/65 - Physical General Appearance: Yes: Nourished, Mild Distress, Tremorous, Irritable, Sweating (Increased facial moisture), Anxious HEENTM: Yes: EOMI, Hearing grossly Normal, Normocephalic, Normal Voice, TWILA ( Pupils = 5 mm), Pharynx Normal, Nasal Congestion Respiratory: Yes: Lungs Clear, Normal Breath Sounds, No Respiratory Distress Neck: Yes: No masses,lesions,Nodules, Supple Breast: Yes: Breast Exam Deferred Cardiology: Yes: Regular Rhythm, Regular Rate, S1, S2 Abdominal: Yes: Non Tender, Flat, Soft, Increased Bowel Sounds Genitourinary: Yes: Within Normal Limits Back: Yes: Normal Inspection Musculoskeletal: Yes: full range of Motion, Gait Steady Extremities: Yes: Normal Capillary Refill (Periph pulses +), Tremors (Gross tremors) Neurological: Yes: barman II-XII NML intact, Fully Oriented, Alert, Motor Strength 5/5, Depressed Affect Integumentary: Yes: Normal Color, Warm, Moist (Increased facial moisture) Lymphatic: Yes: Within Normal Limits - Diagnostic (1) Anxiolytic withdrawal without complication Current Visit: Yes Status: Acute (2) Tooth ache Current Visit: Yes Status: Chronic (3) Opioid dependence with withdrawal Current Visit: Yes Status: Acute (4) Nicotine dependence Current Visit: Yes Status: Chronic Qualifiers: Nicotine product type: cigarettes Substance use status: uncomplicated Qualified Code(s): F17.210 - Nicotine dependence, cigarettes, uncomplicated (5) Insomnia Current Visit: Yes Status: Chronic Qualifiers: Insomnia type: unspecified Qualified Code(s): G47.00 - Insomnia, unspecified Cleared for Admission [facility] - Detox or Rehab [facility] Level of Care: Medically Managed Detox Regimen/Protocol: Ativan, Methadone Claeared for Rehab Admission: No Breathalyzer - Breathalyzer Breathalyzer: 0 Urine Drug Screen - Test Device Lot number: [id number] Expiration date: 10/02/21 - Control Is test valid?: Yes - Results Drug screen NEGATIVE: No Urine drug screen results: FEN-Fentanyl, MOP-Opiates, BZO-Benzodiazepines Inpatient Rehab Admission - Rehab Decision to Admit Inpatient rehab admission?: No
[2019-12-31] MEDS ORDERED: MENTHOL/PHENOL 1 EACH UD MM PRN (22:03)
[2019-12-31] MEDS ORDERED: ACETAMINOPHEN 325 MG TABLET (FP) PO PRN (22:03)
[2019-12-31] MEDS ORDERED: MELATONIN 5 MG TABLETS PO PRN (22:03)
[2019-12-31] MEDS ORDERED: MAGNESIUM CITRATE 300 ML BOTTLE PO PRN (22:03)
[2019-12-31] MEDS ORDERED: BISMUTH SUBSALICYLATE 524 MG/30 ML UD PO PRN (22:03)
[2019-12-31] MEDS ORDERED: MAG HYDROX/AL HYDROX/SIMETH 30 ML UNIT-DOSE CUP PO PRN (22:03)
[2019-12-31] MEDS ORDERED: IBUPROFEN 600 MG TABLET (FP) PO PRN (22:03)
[2019-12-31] MEDS ORDERED: NICOTINE POLACRILEX 2 MG GUM BUC PRN (22:03)
[2019-12-31] MEDS ORDERED: MAGNESIUM HYDROX 2400MG/30ML ORAL SUSPENSION 30 ML CUP PO PRN (22:03)
[2019-12-31] MEDS ORDERED: cloNIDine HCL 0.1 MG TABLET PO PRN (22:07)
[2019-12-31] MEDS ORDERED: METHADONE HCL 10 MG TABLET (FOR DETOX USE ONLY) PO ONE (22:30)
[2019-12-31] MEDS: LORazepam 2 MG TABLET PO SCH (22:53)
[2020-01-01] MEDS: LORazepam 2 MG TABLET PO SCH ×4 (05:39→22:36)
[2020-01-01] MEDS ORDERED: METHADONE HCL 5 MG TABLET (FOR DETOX USE ONLY) ONE (09:15)
[2020-01-01] MEDS ORDERED: METHADONE HCL 10 MG TABLET (FOR DETOX USE ONLY) ONE (09:15)
[2020-01-01 09:41] LABS: HEMATOCRIT 37.3 % (35.4-49); HEMOGLOBIN 12.7 GM/dL (11.7-16.9); MCH 29.1 pg (25.7-33.7); MCHC 34.1 g/dl (32.0-35.9); MEAN CELL VOLUME 85.4 fl (80-96); MEAN PLT VOLUME 8.6 fl (7.5-11.1); PLATELET COUNT 211 K/MM3 (134-434); RBC 4.36 M/mm3 (4.00-5.60); RDW 14.2 % (11.9-15.9); WHITE BLOOD COUNT 10.3 K/mm3 (4.0-10.0)
[2020-01-01] MEDS ORDERED: METHADONE (DETOX) 20 MG, METHADONE (DETOX) 5 MG PO ONE (10:00)
[2020-01-01] MEDS: NICOTINE 14 MG/24 HOURS TOPICAL PATCH TD SCH (10:18)
[2020-01-01] MEDS: PRENATAL VITAMINS W/ FOLIC ACID TABLET (FP) PO SCH (10:18)
[2020-01-01 10:26] LABS: ALBUMIN 3.4 g/dl (3.4-5.0); BILIRUBIN,TOTAL 0.1 mg/dL (0.2-1); BLOOD UREA NITROGEN 11.4 mg/dL (7-18); CALCIUM 8.3 mg/dL (8.5-10.1); CREATININE 0.9 mg/dL (0.55-1.3); POTASSIUM 3.7 mmol/L (3.5-5.1); TOT PROT 6.5 g/dl (6.4-8.2)
--- NOTE | 2020-01-01 10:56 | CONSULT ---
[facility] Psychiatric Consult - Data Date of interview: 01/01/20 Admission source: [facility] Identifying data: Revisit to [facility] and admission to [address] [place] [address] for this [place]-born male self-referred for detoxification treatment. DEWAYNE issues : heroin, benzodiazepine (xanax),nicotine. Patient is single, no children, domiciled and currently employed. Substance Abuse History: Discussed with the patient. Details in current [facility] report as follows : Smoking history: Current every day smoker. Have you smoked in the past 12 months: Yes. Aproximately how many cigarettes per day: 10. Cigars Per Day: 0. Hx Chewing Tobacco Use: No. Initiated information on smoking cessation: Yes. 'Breaking Loose' booklet given: 12/31/19. - Substance & Tx. History. Hx Alcohol Use: No. Hx Substance Use: Yes. Substance Use Type : Heroin, Opiates, Tranquilizers (Xanax). - Substances abused. Heroin. Substance route: Oral. Frequency: Daily. Amount used: 15 bags. Age of first use: 23. Date of last use: 12/31/19. Alprazolam (Xanax). Substance route: Oral. Frequency: Daily. Amount used: 5 to 6 of the 2 mg/ to 12 mg. Age of first use: 24. Date of last use: 12/31/19 Medical History: Patient endorses good general health. Psychiatric History: Patient denies history of psychiatric hospitalizations. Mr Chambers saw a psychiatrist, for the first time, in 2006 to address depression + anxiety. Had a brief OPD follow-up at the [facility]. Patient was prescribed sertraline and buspirone (diagnosed with MDD). Dropped out of psychiatric care after a few months. No reported history of suicide attempts. Physical/Sexual Abuse/Trauma History: Patient denies. Additional Comment: Urine drug screen results: FEN-Fentanyl, MOP-Opiates, BZO- Benzodiazepines. Noted. Mental Status Exam - Mental Status Exam Alert and Oriented to: Time, Place, Person Cognitive Function: Good Patient Appearance: Well Groomed (tattoo on left forearm) Mood: Withdrawn, Hopeful Affect: Mood Congruent, Constricted Patient Behavior: Fatigued, Appropriate, Cooperative Speech Pattern: Clear, Appropriate Voice Loudness: Normal Thought Process: Intact, Goal Oriented Thought Disorder: Not Present Hallucinations: Denies Suicidal Ideation: Denies Homicidal Ideation: Denies Insight/Judgement: Poor Sleep: Fair Appetite: Good Gait/Station: Normal Psychiatric Findings - Problem List ([place] 1, 2,3) (1) Opioid dependence with withdrawal Current Visit: Yes Status: Acute (2) Anxiolytic withdrawal without complication Current Visit: Yes Status: Acute (3) Nicotine dependence Current Visit: Yes Status: Chronic Qualifiers: Nicotine product type: cigarettes Substance use status: uncomplicated Qualified Code(s): F17.210 - Nicotine dependence, cigarettes, uncomplicated (4) Substance induced mood disorder Current Visit: Yes Status: Chronic (5) Anxiety disorder Current Visit: Yes Status: Chronic Qualifiers: Anxiety disorder type: unspecified anxiety disorder Qualified Code(s): F41.9 - Anxiety disorder, unspecified (6) Insomnia Current Visit: Yes Status: Chronic Qualifiers: Insomnia type: unspecified Qualified Code(s): G47.00 - Insomnia, unspecified (7) Non-compliance Current Visit: Yes Status: Chronic - Initial Treatment Plan Initial Treatment Plan: Psychoeducation. Sleep hygiene. Detoxification. NA meetings. Resumed at patient's request : zoloft 50 mg po daily. Side effects/ benefits discussed with the patient. Consent (verbal) granted to MD. Gonzalez.
--- NOTE | 2020-01-01 11:43 | PN ---
[facility] CIWA - CIWA Score Nausea/Vomitin-No Nausea/No Vomiting Muscle Tremors: 2 Anxiety: 3 Agitation: 1-Slight > Activity Paroxysmal Sweats: 3 Orientation: 0-Oriented Tacttile Disturbances: 0-None Auditory Disturbances: 0-None Visual Disturbances: 0-None Headache: 2-Mild CIWA-Ar Total Score: 11 S COWS - Scale Resting Pulse: 0= [place] 80 or Below Sweatin= Chills/Flushing Restless Observation: 1= Difficult to Sit Still Pupil Size: 0= Normal to Room Light Bone or Joint Aches: 2= Severe Diffuse Aches Runny Nose/ Eye Tearin= None GI Upset > 30mins: 0= None Tremor Observation of Outstretched Hands: 2= Slight Tremor Visible Yawning Observation: 1= 1-2x During Session Anxiety or Irritability: 2=Irritable/Anxious Goose Flesh Skin: 0=Smooth Skin COWS Score: 9 S Progress Note (SOAP) Subjective: c/o shakes, chills, sweats, anxiety, irritability, muscle aches, and headache. Objective: 01/01/20 11:42 Vital Signs 01/01/20 01/01/20 07:13 08:58 Temperature 97.2 F L 97.1 F L Pulse Rate 73 78 Respiratory 16 18 Rate Blood Pressure 111/63 102/67 Laboratory Last Values WBC 10.3 K/mm3 (4.0-10.0) H 01/01/20 07:20 RBC 4.36 M/mm3 (4.00-5.60) 01/01/20 07:20 Hgb 12.7 GM/dL (11.7-16.9) 01/01/20 07:20 Hct 37.3 % (35.4-49) 01/01/20 07:20 MCV 85.4 fl (80-96) 01/01/20 07:20 MCH 29.1 pg (25.7-33.7) 01/01/20 07:20 MCHC 34.1 g/dl (32.0-35.9) 01/01/20 07:20 RDW 14.2 % (11.9-15.9) 01/01/20 07:20 Plt Count 211 K/MM3 (134-434) 01/01/20 07:20 MPV 8.6 fl (7.5-11.1) D 01/01/20 07:20 Sodium 139 mmol/L (136-145) 01/01/20 07:20 Potassium 3.7 mmol/L (3.5-5.1) 01/01/20 07:20 Chloride 104 mmol/L (98-107) 01/01/20 07:20 Carbon Dioxide 30 mmol/L (21-32) 01/01/20 07:20 Anion Gap 6 MMOL/L (8-16) L 01/01/20 07:20 BUN 11.4 mg/dL (7-18) 01/01/20 07:20 Creatinine 0.9 mg/dL (0.55-1.3) 01/01/20 07:20 Est GFR (CKD-EPI)AfAm 137.10 01/01/20 07:20 Est GFR (CKD-EPI)NonAf 118.29 01/01/20 07:20 Random Glucose 116 mg/dL (74-106) H 01/01/20 07:20 Calcium 8.3 mg/dL (8.5-10.1) L 01/01/20 07:20 Total Bilirubin 0.1 mg/dL (0.2-1) L 01/01/20 07:20 AST 26 U/L (15-37) 01/01/20 07:20 ALT 34 U/L (13-61) 01/01/20 07:20 Alkaline Phosphatase 135 U/L (45-117) H 01/01/20 07:20 Total Protein 6.5 g/dl (6.4-8.2) 01/01/20 07:20 Albumin 3.4 g/dl (3.4-5.0) 01/01/20 07:20 RPR Titer Nonreactive (NONREACTIVE) 01/01/20 07:20 Labs noted with mild elevated wbc. Assessment: 01/01/20 11:43 AOX3, in no respiratory distress. Full ROM, ambulating in the unit. Withdrawal symptoms. Plan: continue detox. Increase fluids.
[2020-01-01] MEDS ORDERED: FLU VACCINE QUAD 60 MCG/0.5 ML (MDV 19-20) IM ONE (12:00)
[2020-01-01] MEDS: THIAMINE HCL 100 MG TABLET (FP) PO SCH (22:37)
[2020-01-02] MEDS: LORazepam 1 MG TABLET PO SCH ×4 (04:52→22:11)
[2020-01-02] MEDS: ACETAMINOPHEN 325 MG TABLET (FP) PO PRN (04:53)
[2020-01-02] MEDS ORDERED: METHADONE HCL 10 MG TABLET (FOR DETOX USE ONLY) PO ONE (10:00)
[2020-01-02] MEDS: SERTRALINE HCL 50 MG TABLET (FP) PO SCH (10:14)
[2020-01-02] MEDS: PRENATAL VITAMINS W/ FOLIC ACID TABLET (FP) PO SCH (10:15)
[2020-01-02] MEDS: NICOTINE 14 MG/24 HOURS TOPICAL PATCH TD SCH (10:15)
[2020-01-02] MEDS: LORazepam 1 MG TABLET PO PRN ×2 (12:35→20:40)
[2020-01-02] MEDS ORDERED: hydrOXYzine PAMOATE 50 MG CAPSULE (FP) PO ONE (14:22)
--- NOTE | 2020-01-02 14:26 | PN ---
[facility] CIWA - CIWA Score Nausea/Vomitin-No Nausea/No Vomiting Muscle Tremors: 3 Anxiety: 3 Agitation: 0-Normal Activity Paroxysmal Sweats: 2 Orientation: 0-Oriented Tacttile Disturbances: 0-None Auditory Disturbances: 0-None Visual Disturbances: 0-None Headache: 1-Very Mild CIWA-Ar Total Score: 9 BHS COWS - Scale Resting Pulse: 1= [place] 81-100 Sweatin= Chills/Flushing Restless Observation: 0= Sits Still Pupil Size: 1= Pupils >than Normal Bone or Joint Aches: 1= Mild Discomfort Runny Nose/ Eye Tearin= None GI Upset > 30mins: 2= Nausea/Diarrhea Tremor Observation of Outstretched Hands: 2= Slight Tremor Visible Yawning Observation: 0= None Anxiety or Irritability: 1=Feels Anxious/Irritable Goose Flesh Skin: 0=Smooth Skin COWS Score: 9 S Progress Note (SOAP) Subjective: 24 years old male admitted on 12/31/19 for benzo and opiate withdrawal sx management treating with ativan and methadone detox regiments anxiousness restlessness tremor vistaril 50 mg po x 1 Objective: 01/02/20 14:25 Vital Signs Temperature 97.5 F L 01/02/20 10:00 Pulse Rate 82 01/02/20 10:00 Respiratory Rate 16 01/02/20 10:00 Blood Pressure 99/67 01/02/20 10:00 O2 Sat by Pulse Oximetry (%) Laboratory Last Values WBC 10.3 K/mm3 (4.0-10.0) H 01/01/20 07:20 RBC 4.36 M/mm3 (4.00-5.60) 01/01/20 07:20 Hgb 12.7 GM/dL (11.7-16.9) 01/01/20 07:20 Hct 37.3 % (35.4-49) 01/01/20 07:20 MCV 85.4 fl (80-96) 01/01/20 07:20 MCH 29.1 pg (25.7-33.7) 01/01/20 07:20 MCHC 34.1 g/dl (32.0-35.9) 01/01/20 07:20 RDW 14.2 % (11.9-15.9) 01/01/20 07:20 Plt Count 211 K/MM3 (134-434) 01/01/20 07:20 MPV 8.6 fl (7.5-11.1) D 01/01/20 07:20 Sodium 139 mmol/L (136-145) 01/01/20 07:20 Potassium 3.7 mmol/L (3.5-5.1) 01/01/20 07:20 Chloride 104 mmol/L (98-107) 01/01/20 07:20 Carbon Dioxide 30 mmol/L (21-32) 01/01/20 07:20 Anion Gap 6 MMOL/L (8-16) L 01/01/20 07:20 BUN 11.4 mg/dL (7-18) 01/01/20 07:20 Creatinine 0.9 mg/dL (0.55-1.3) 01/01/20 07:20 Est GFR (CKD-EPI)AfAm 137.10 01/01/20 07:20 Est GFR (CKD-EPI)NonAf 118.29 01/01/20 07:20 Random Glucose 116 mg/dL (74-106) H 01/01/20 07:20 Calcium 8.3 mg/dL (8.5-10.1) L 01/01/20 07:20 Total Bilirubin 0.1 mg/dL (0.2-1) L 01/01/20 07:20 AST 26 U/L (15-37) 01/01/20 07:20 ALT 34 U/L (13-61) 01/01/20 07:20 Alkaline Phosphatase 135 U/L (45-117) H 01/01/20 07:20 Total Protein 6.5 g/dl (6.4-8.2) 01/01/20 07:20 Albumin 3.4 g/dl (3.4-5.0) 01/01/20 07:20 RPR Titer Nonreactive (NONREACTIVE) 01/01/20 07:20 lab noted Assessment: 01/02/20 14:25 benzo and opiate withdrawal Plan: ativan and methadone regiments
[2020-01-02 17:34] LABS: URINE APPEARANCE CLEAR; URINE BILIRUBIN NEGATIVE (NEGATIVE); URINE COLOR YELLOW; URINE GLUCOSE (UA) NEGATIVE (NEGATIVE); URINE KETONE NEGATIVE (NEGATIVE); URINE LEUK ESTERASE NEGATIVE (NEGATIVE); URINE NITRITE NEGATIVE (NEGATIVE); URINE PROTEIN NEGATIVE (NEGATIVE); URINE UROBILINOGEN 0.2 mg/dL (0.2-1.0)
[2020-01-02] MEDS: THIAMINE HCL 100 MG TABLET (FP) PO SCH (22:11)
[2020-01-02 23:53] LABS: PH,URINE 7.5 (5.0-8.0); URINE APPEARANCE CLEAR; URINE BILIRUBIN NEGATIVE (NEGATIVE); URINE COLOR YELLOW; URINE GLUCOSE (UA) NEGATIVE (NEGATIVE); URINE KETONE NEGATIVE (NEGATIVE); URINE LEUK ESTERASE NEGATIVE (NEGATIVE); URINE NITRITE NEGATIVE (NEGATIVE); URINE PROTEIN NEGATIVE (NEGATIVE); URINE UROBILINOGEN 0.2 mg/dL (0.2-1.0)
[2020-01-03] MEDS: ACETAMINOPHEN 325 MG TABLET (FP) PO PRN (02:12)
[2020-01-03] MEDS: LORazepam 0.5 MG TABLET PO PRN ×2 (02:14→08:48)
[2020-01-03] MEDS: LORazepam 0.5 MG TABLET PO SCH ×2 (05:30→10:56)
[2020-01-03 09:18] VITALS: BP 115/74; PULSE 98; TEMP 98
[2020-01-03] MEDS: PRENATAL VITAMINS W/ FOLIC ACID TABLET (FP) PO SCH (09:43)
[2020-01-03] MEDS: NICOTINE 14 MG/24 HOURS TOPICAL PATCH TD SCH (09:43)
[2020-01-03] MEDS: SERTRALINE HCL 50 MG TABLET (FP) PO SCH (09:43)
[2020-01-03] MEDS ORDERED: METHADONE (DETOX) 10 MG, METHADONE (DETOX) 5 MG PO ONE (10:00)
--- NOTE | 2020-01-03 11:12 | DS ---
[facility] Detox Discharge Summary Admission Date: 12/31/19 Discharge Date: 01/03/20 - History Present History: Opioid Dependence, Sedative Dependence Additional Comments: 24 years old male admitted on 12/31/19for benzo and opiate withdrawal sx management treated with Ativan and methadone detox regiments Mr Valera has long history of anxiety treated with benzo seen by psychiatrist resume zoloft requests to be seen by a psychiatrist to raise zoloft dosage patient does not want to wait for house psychiatrist prefers to visit primary care mental health provider patient states that benzo and opiate withdrawal symptoms are tolerable and prefers to leave the detox unit discuss the benefits of voluntary substance detox completion as first step to recovery patient is aware of the voluntary detox status alert oriented x 3 respiratory clear lungs bilaterally on auscultation extremities full range of motion skin warm and dry Pertinent Past History: time for discharge 38 minutes - Physical Exam Results Vital Signs: Vital Signs Temperature 98.0 F 01/03/20 08:31 Pulse Rate 98 H 01/03/20 08:31 Respiratory Rate 20 01/03/20 08:31 Blood Pressure 115/74 01/03/20 08:31 O2 Sat by Pulse Oximetry (%) Pertinent Admission Physical Exam Findings: benzo and opiate withdrawal Vital Signs Temperature 98.0 F 01/03/20 08:31 Pulse Rate 98 H 01/03/20 08:31 Respiratory Rate 20 01/03/20 08:31 Blood Pressure 115/74 01/03/20 08:31 O2 Sat by Pulse Oximetry (%) Laboratory Last Values WBC 10.3 K/mm3 (4.0-10.0) H 01/01/20 07:20 RBC 4.36 M/mm3 (4.00-5.60) 01/01/20 07:20 Hgb 12.7 GM/dL (11.7-16.9) 01/01/20 07:20 Hct 37.3 % (35.4-49) 01/01/20 07:20 MCV 85.4 fl (80-96) 01/01/20 07:20 MCH 29.1 pg (25.7-33.7) 01/01/20 07:20 MCHC 34.1 g/dl (32.0-35.9) 01/01/20 07:20 RDW 14.2 % (11.9-15.9) 01/01/20 07:20 Plt Count 211 K/MM3 (134-434) 01/01/20 07:20 MPV 8.6 fl (7.5-11.1) D 01/01/20 07:20 Sodium 139 mmol/L (136-145) 01/01/20 07:20 Potassium 3.7 mmol/L (3.5-5.1) 01/01/20 07:20 Chloride 104 mmol/L (98-107) 01/01/20 07:20 Carbon Dioxide 30 mmol/L (21-32) 01/01/20 07:20 Anion Gap 6 MMOL/L (8-16) L 01/01/20 07:20 BUN 11.4 mg/dL (7-18) 01/01/20 07:20 Creatinine 0.9 mg/dL (0.55-1.3) 01/01/20 07:20 Est GFR (CKD-EPI)AfAm 137.10 01/01/20 07:20 Est GFR (CKD-EPI)NonAf 118.29 01/01/20 07:20 Random Glucose 116 mg/dL (74-106) H 01/01/20 07:20 Calcium 8.3 mg/dL (8.5-10.1) L 01/01/20 07:20 Total Bilirubin 0.1 mg/dL (0.2-1) L 01/01/20 07:20 AST 26 U/L (15-37) 01/01/20 07:20 ALT 34 U/L (13-61) 01/01/20 07:20 Alkaline Phosphatase 135 U/L (45-117) H 01/01/20 07:20 Total Protein 6.5 g/dl (6.4-8.2) 01/01/20 07:20 Albumin 3.4 g/dl (3.4-5.0) 01/01/20 07:20 Urine Color Yellow 01/02/20 23:40 Urine Appearance Clear 01/02/20 23:40 Urine pH 7.5 (5.0-8.0) 01/02/20 23:40 Ur Specific [place] 1.018 (1.010-1.035) 01/02/20 23:40 Urine Protein Negative (NEGATIVE) 01/02/20 23:40 Urine Glucose (UA) Negative (NEGATIVE) 01/02/20 23:40 Urine Ketones Negative (NEGATIVE) 01/02/20 23:40 Urine Blood Negative (NEGATIVE) 01/02/20 23:40 Urine Nitrite Negative (NEGATIVE) 01/02/20 23:40 Urine Bilirubin Negative (NEGATIVE) 01/02/20 23:40 Urine Urobilinogen 0.2 mg/dL (0.2-1.0) 01/02/20 23:40 Ur Leukocyte Esterase Negative (NEGATIVE) 01/02/20 23:40 RPR Titer Nonreactive (NONREACTIVE) 01/01/20 07:20 lab noted - Treatment Hospital Course: Detox Protocol Followed, Detoxed Safely, Responded well, Discharged Condition Good, Rehab Referral Accepted Patient has Accepted a Rehab Referral to: medication assisted treatment program - Medication Discharge Medications: Ambulatory Orders Sertraline HCl [Zoloft -] 50 mg PO DAILY 12/31/19 Naloxone HCl [Narcan] 4 mg NS ASDIR PRN #1 spray 01/03/20 - Diagnosis (1) Opioid dependence with withdrawal Status: Acute (2) Nicotine dependence Status: Acute Qualifiers: Nicotine product type: cigarettes Substance use status: in withdrawal Qualified Code(s): F17.213 - Nicotine dependence, cigarettes, with withdrawal (3) Substance induced mood disorder Status: Suspected - AMA Did Patient Leave Against Medical Advice: No CIWA Score - CIWA Score Nausea/Vomitin-No Nausea/No Vomiting Muscle Tremors: 2 Anxiety: 2 Agitation: 0-Normal Activity Paroxysmal Sweats: 1-Minimal Palms Moist Orientation: 0-Oriented Tacttile Disturbances: 0-None Auditory Disturbances: 0-None Visual Disturbances: 0-None Headache: 0-None Present CIWA-Ar Total Score: 5 COWS (PN) - Opiate Withdrawal Resting Pulse: 1= [place] 81-100 Sweatin= No chills or Flushing Restless Observation: 0= Sits Still Pupil Size: 0= Normal to Room Light Bone or Joint Aches: 1= Mild Discomfort Runny Nose/ Eye Tearin= None GI Upset > 30mins: 1= Stomach Cramp Tremor Observation of Outstretched Hands: 1= Tremor [place], Not Seen Yawning Observation: 0= None Anxiety or Irritability: 1=Feels Anxious/Irritable Goose Flesh Skin: 0=Smooth Skin COWS Score: 5
[2020-01-04] MEDS ORDERED: LORazepam 0.5 MG TABLET PO ONE (05:00)
[2020-01-04] MEDS ORDERED: METHADONE HCL 10 MG TABLET (FOR DETOX USE ONLY) PO ONE (10:00)
[2020-01-05] MEDS ORDERED: METHADONE HCL 5 MG TABLET (FOR DETOX USE ONLY) PO ONE (06:00)
== END 2020-01-03 09:20 | disposition home or self-care (01) | DRG 773 ==
LOC: YASAS 16:09 → Y3N 20:24
PROVIDERS: ADMIT Allergy & Immunology; ATTEND Allergy & Immunology
PROC: HZ2ZZZZ Detoxification Services for Substance Abuse Treatment (ICD-10-PCS; principal; 2019-12-31)
DX: F11.23 Opioid dependence with withdrawal (principal); F13.230 Sedative, hypnotic or anxiolytic dependence with withdrawal, uncomplicated; F17.210 Nicotine dependence, cigarettes, uncomplicated; F19.24 Other psychoactive substance dependence with psychoactive substance-induced mood disorder; F32.9 Major depressive disorder, single episode, unspecified; F41.9 Anxiety disorder, unspecified; D72.829 Elevated white blood cell count, unspecified; G47.00 Insomnia, unspecified; K08.89 Other specified disorders of teeth and supporting structures; Z91.19 Patient's noncompliance with other medical treatment and regimen
CPT/HCPCS: 36415; 80053; 81003; 85027; 86593; J0735; Q2036

== ENCOUNTER 2020-09-25 10:37 | Inpatient (IN) | payer OTHER ==
[2020-09-25 11:23] VITALS: BMI 31.3
[2020-09-25] MEDS ORDERED: MENTHOL/PHENOL 1 EACH UD MM PRN (11:49)
[2020-09-25] MEDS ORDERED: IBUPROFEN 400 MG TABLET (FP) PO PRN (11:49)
[2020-09-25] MEDS ORDERED: BISMUTH SUBSALICYLATE 524 MG/30 ML UD PO PRN (11:49)
[2020-09-25] MEDS ORDERED: ACETAMINOPHEN 325 MG TABLET (FP) PO PRN ×2 (11:49)
[2020-09-25] MEDS ORDERED: ONDANSETRON *ODT* 4 MG TABLET SL PRN (11:49)
[2020-09-25] MEDS ORDERED: NICOTINE POLACRILEX 2 MG GUM BUC PRN (11:49)
[2020-09-25] MEDS ORDERED: MAGNESIUM HYDROX 2400MG/30ML ORAL SUSPENSION 30 ML CUP PO PRN (11:49)
[2020-09-25] MEDS ORDERED: MAG HYDROX/AL HYDROX/SIMETH 30 ML UNIT-DOSE CUP PO PRN (11:49)
[2020-09-25] MEDS ORDERED: cloNIDine HCL 0.1 MG TABLET PO PRN (11:49)
[2020-09-25] MEDS ORDERED: MAGNESIUM CITRATE 300 ML BOTTLE PO PRN (11:49)
[2020-09-25] MEDS ORDERED: METHADONE HCL 10 MG TABLET (FOR DETOX USE ONLY) PO ONE (12:15)
[2020-09-25] MEDS: hydrOXYzine PAMOATE 25 MG CAPSULE (FP) PO SCH ×3 (14:06→22:14)
[2020-09-25] MEDS: LORazepam 1 MG TABLET PO PRN (14:06)
[2020-09-25 14:33] LABS: POTASSIUM 4.5 mmol/L (3.5-5.1)
[2020-09-25 14:35] LABS: ALBUMIN 4.4 g/dl (3.4-5.0); BLOOD UREA NITROGEN 9.5 mg/dL (7-18); CALCIUM 9.2 mg/dL (8.5-10.1); HEMATOCRIT 46.6 % (35.4-49); HEMOGLOBIN 15.9 GM/dL (11.7-16.9); MCH 28.8 pg (25.7-33.7); MCHC 34.2 g/dl (32.0-35.9); MEAN CELL VOLUME 84.2 fl (80-96); MEAN PLT VOLUME 9.5 fl (7.5-11.1); PLATELET COUNT 204 K/MM3 (134-434); RBC 5.54 M/mm3 (4.00-5.60); WHITE BLOOD COUNT 10.7 K/mm3 (4.0-10.0)
[2020-09-25 14:40] LABS: BILIRUBIN,TOTAL 0.3 mg/dL (0.2-1); TOT PROT 8.1 g/dl (6.4-8.2)
[2020-09-25] MEDS: LORazepam 2 MG TABLET PO SCH ×2 (17:32→22:14)
[2020-09-25] MEDS: MELATONIN 5 MG TABLETS PO SCH (22:13)
[2020-09-25] MEDS: THIAMINE HCL 100 MG TABLET (FP) PO SCH (22:14)
[2020-09-25] MEDS: traZODone HCL 50 MG TABLET (FP) PO SCH (22:15)
[2020-09-26] MEDS: hydrOXYzine PAMOATE 25 MG CAPSULE (FP) PO SCH ×5 (05:49→22:04)
[2020-09-26] MEDS: LORazepam 2 MG TABLET PO SCH ×4 (05:49→22:04)
[2020-09-26] MEDS ORDERED: METHADONE HCL 5 MG TABLET (FOR DETOX USE ONLY) ONE (09:10)
[2020-09-26] MEDS ORDERED: METHADONE HCL 10 MG TABLET (FOR DETOX USE ONLY) ONE (09:10)
[2020-09-26] MEDS ORDERED: METHADONE (DETOX) 20 MG, METHADONE (DETOX) 5 MG PO ONE (10:00)
[2020-09-26] MEDS: PRENATAL VITAMINS W/ FOLIC ACID TABLET (FP) PO SCH (10:04)
[2020-09-26] MEDS: NICOTINE 7 MG/24 HOURS TOPICAL PATCH TD SCH (10:05)
[2020-09-26] MEDS: LORazepam 1 MG TABLET PO PRN (14:08)
[2020-09-26] MEDS: MELATONIN 5 MG TABLETS PO SCH (22:04)
[2020-09-26] MEDS: THIAMINE HCL 100 MG TABLET (FP) PO SCH (22:04)
[2020-09-26] MEDS: traZODone HCL 50 MG TABLET (FP) PO SCH (22:04)
[2020-09-27] MEDS: LORazepam 1 MG TABLET PO SCH ×4 (05:30→22:16)
[2020-09-27] MEDS: hydrOXYzine PAMOATE 25 MG CAPSULE (FP) PO SCH ×3 (05:30→13:46)
[2020-09-27] MEDS ORDERED: METHADONE HCL 10 MG TABLET (FOR DETOX USE ONLY) PO ONE (10:00)
[2020-09-27] MEDS: NICOTINE 7 MG/24 HOURS TOPICAL PATCH TD SCH (10:06)
[2020-09-27] MEDS: PRENATAL VITAMINS W/ FOLIC ACID TABLET (FP) PO SCH (10:06)
[2020-09-27] MEDS: LORazepam 1 MG TABLET PO PRN (13:46)
[2020-09-27] MEDS ORDERED: hydrOXYzine PAMOATE 50 MG CAPSULE (FP) PO PRN (14:12)
[2020-09-27] MEDS ORDERED: METHOCARBAMOL 750 MG TAB PO ONE (14:15)
[2020-09-27] MEDS: MELATONIN 5 MG TABLETS PO SCH (22:15)
[2020-09-27] MEDS: THIAMINE HCL 100 MG TABLET (FP) PO SCH (22:15)
[2020-09-27] MEDS: traZODone HCL 50 MG TABLET (FP) PO SCH (22:16)
[2020-09-27] MEDS: METHOCARBAMOL 500 MG TABLET PO PRN (22:17)
[2020-09-28] MEDS ORDERED: LORazepam 0.5 MG TABLET PO PRN
[2020-09-28] MEDS: LORazepam 0.5 MG TABLET PO SCH ×2 (06:25→10:07)
[2020-09-28 06:29] VITALS: TEMP 97.3
[2020-09-28 09:21] VITALS: BP 117/81; PULSE 113
[2020-09-28] MEDS ORDERED: METHADONE HCL 10 MG TABLET (FOR DETOX USE ONLY) ONE (09:38)
[2020-09-28] MEDS ORDERED: METHADONE HCL 5 MG TABLET (FOR DETOX USE ONLY) ONE (09:39)
[2020-09-28] MEDS ORDERED: METHADONE (DETOX) 10 MG, METHADONE (DETOX) 5 MG PO ONE (10:00)
[2020-09-28] MEDS: PRENATAL VITAMINS W/ FOLIC ACID TABLET (FP) PO SCH (10:06)
[2020-09-28] MEDS: METHOCARBAMOL 500 MG TABLET PO PRN (10:07)
[2020-09-28] MEDS: NICOTINE 7 MG/24 HOURS TOPICAL PATCH TD SCH (10:07)
[2020-09-29] MEDS ORDERED: LORazepam 0.5 MG TABLET PO ONE (05:00)
[2020-09-29] MEDS ORDERED: METHADONE HCL 10 MG TABLET (FOR DETOX USE ONLY) PO ONE (10:00)
[2020-09-30] MEDS ORDERED: METHADONE HCL 5 MG TABLET (FOR DETOX USE ONLY) PO ONE (06:00)
== END 2020-09-28 11:40 | disposition left against medical advice (07) | DRG 770 ==
LOC: YASAS 10:37 → Y3N 11:54
PROVIDERS: ADMIT Allergy & Immunology; ATTEND Allergy & Immunology
PROC: HZ2ZZZZ Detoxification Services for Substance Abuse Treatment (ICD-10-PCS; principal; 2020-09-25)
DX: F11.23 Opioid dependence with withdrawal (principal); F13.230 Sedative, hypnotic or anxiolytic dependence with withdrawal, uncomplicated; F12.10 Cannabis abuse, uncomplicated; F17.210 Nicotine dependence, cigarettes, uncomplicated; F19.24 Other psychoactive substance dependence with psychoactive substance-induced mood disorder; G47.00 Insomnia, unspecified; I10 Essential (primary) hypertension; E66.9 Obesity, unspecified; Z68.31 Body mass index [BMI] 31.0-31.9, adult; Z90.49 Acquired absence of other specified parts of digestive tract
CPT/HCPCS: 36415; 80053; 85027; 86780; 93005; 93010; C9803; U0003